=== PATIENT | male | born 1945 | race Caucasian/White ===

== ENCOUNTER → 2017-03-09 | Outpatient (CLI) | payer MEDICARE, OTHER ==
[~2017-03-09] MED LIST: AMBI12.5 PO; AMLO5TAB96 PO; ASPI-147 PO; B COTAB3 PO; BOSW5TAB PO; BUPR150CR PO; BUPR150T12 PO; CARV20 PO; CARV40 PO; CENTCHW3 PO; CENTTAB9 PO; CEPH500C3 PO; CHOL1CAP2 PO; CLOP75 PO; CLOP75TA PO; COLA100C PO; COQ1400C PO; ECOT81TA2 PO; FENO50TA PO; FIBER CAPSULES; FINA5TAB2 PO; FISH1000 PO; FORT10GE TD; FOSI10TA PO; FOSI10TA4 PO; FURO20TA PO; GABA600T PO; GLUCTAB PO; HYDR-3288 PO; HYDR-3580 PO; IMDU60TA PO; ISOS60TA PO; LACTCAP8 PO; LANO0.2510 PO; LASI20TA PO; LECI12002 PO; LEVEMIR SQ; METF1000 PO; METF500T PO; NEUR600T PO; NITR12SP SL; NITRSPR6 SL; NUCY200T PO; OMEGCAP PO; OMEP20TA PO; OSTEO BI-FLEX; OXYC1SOL5 PO; PANT20 PO; PLAV75TA29 PO; POTA-163 PO; POTA20IN3 PO; PSYL0.525 PO; SAW450CA2 PO; SAWPOW PO; SIMV20TA PO; SIMV40TA PO; STOO100C PO; TAMS0.4C4 PO; TAMS0.4C67 PO; VITA1000 PO; VITA500T83 PO; VITACAP7 PO; WELL200T PO; ZOLP10TA3 PO; [UNRECOGNIZED DRUG - CODE] TD
== END ==
LOC: CPRE 08:56
PROVIDERS: ATTEND Orthopaedic Surgery Sports Medicine
DX: Z01.812 Encounter for preprocedural laboratory examination (principal); Z01.818 Encounter for other preprocedural examination; Z01.810 Encounter for preprocedural cardiovascular examination; Z79.01 Long term (current) use of anticoagulants; Z96.60 Presence of unspecified orthopedic joint implant; M17.11 Unilateral primary osteoarthritis, right knee; M25.50 Pain in unspecified joint

== ENCOUNTER → 2017-03-15 | Outpatient (CLI) | payer MEDICARE, OTHER ==
[2017-03-15 10:16] LABS: AUTOMATED NEUTROPHIL # 2.6 TH/MM3 (1.8-7.7); BASOPHIL % 0.3 % (0.0-2.0); EOSINOPHIL # 0.1 TH/MM3 (0-0.4); HEMATOCRIT 39.4 % (39.0-51.0); HEMO FLAGS DIFF FINAL; LYMPH % 42.7 % (9.0-44.0); LYMPHOCYTE # 2.3 TH/MM3 (1.0-4.8); MEAN CELL VOLUME 89.1 FL (80.0-100.0); MEAN CORPUSCULAR HEMOGLOBIN 30.9 PG (27.0-34.0); MEAN CORPUSCULAR HGB CONC 34.7 % (32.0-36.0); MONO % 7.1 % (0.0-8.0); NEUT % 47.9 % (16.0-70.0); PLATELET COUNT 165 TH/MM3 (150-450); RED BLOOD COUNT 4.43 MIL/MM3 (4.50-5.90); RED CELL DISTRIBUTION WIDTH 14.3 % (11.6-17.2); WHITE BLOOD COUNT 5.4 TH/MM3 (4.0-11.0)
[2017-03-15 10:22] LABS: BLOOD, URINE NEG (NEG); GLUCOSE,URINE 70 mg/dL (NEG); KETONE, URINE NEG (NEG); NITRITE,URINE NEG (NEG); PH, URINE 5.5 (5.0-8.5); URINE COLOR YELLOW (YELLW/STRAW)
[2017-03-15 10:31] LABS: APTT (PATIENT) 25.8 SEC (24.3-30.1); PROTHROMBIN TIME - PATIENT 11.2 SEC (9.8-11.6)
[2017-03-15 10:34] LABS: COMMENT (UR) CULT NOT INDICATED; CULTURE IF INDICATED CULT NOT INDICATED
[2017-03-15 10:37] LABS: WESTERGREN SEDIMENTATION RATE 5 mm/hr (0-20)
[2017-03-15 10:38] LABS: ALT (GPT) 54 U/L (12-78); ANION GAP 7 MEQ/L (5-15); AST (GOT) 30 U/L (15-37); BICARBONATE 30.3 MEQ/L (21.0-32.0); BLOOD UREA NITROGEN 26 MG/DL (7-18); CHLORIDE 102 MEQ/L (98-107); GLOMERULAR FILTRATION RATE 75 ML/MIN (>89); GLUCOSE,FASTING 224 MG/DL (74-99); SODIUM (NA) 139 MEQ/L (136-145)
[2017-03-15 10:41] LABS: ALKALINE PHOSPHATASE 48 U/L (45-117); TOTAL BILIRUBIN ADULT 0.7 MG/DL (0.2-1.0)
--- NOTE | 2017-03-15 11:59 | RADRPT ---
EXAM DATE/TIME: 03/15/2017 09:26 [facility] COMPARISON: No previous studies available for comparison. INDICATIONS : Evaluate for pneumoina, pneu,othorax and communicable disease pre op for total knee surgery. MEDICAL HISTORY : None. SURGICAL HISTORY : None. ENCOUNTER: Initial ACUITY: 1 day PAIN SCORE: 0/10 LOCATION: Bilateral chest FINDINGS: PA and lateral views of the chest demonstrate the lungs to be symmetrically aerated without evidence of mass, infiltrate or effusion. The cardiomediastinal contours are unremarkable. Osseous structure s are intact. CONCLUSION: No acute disease. Bernardo Heredia MD on March 15, 2017 at 11:57 Board Certified Radiologist. This report was verified electronically.
== END ==
LOC: CPRE 08:47
PROVIDERS: ATTEND Orthopaedic Surgery Sports Medicine
DX: Z01.811 Encounter for preprocedural respiratory examination (principal); Z01.812 Encounter for preprocedural laboratory examination; Z01.818 Encounter for other preprocedural examination; Z01.810 Encounter for preprocedural cardiovascular examination; Z96.60 Presence of unspecified orthopedic joint implant; Z79.01 Long term (current) use of anticoagulants; M25.50 Pain in unspecified joint; M17.11 Unilateral primary osteoarthritis, right knee
CPT/HCPCS: 36415; 71020; 80053; 81001; 85025; 85610; 85652; 85730

== ENCOUNTER 2017-03-26 06:28 | Inpatient (IN) | payer MEDICARE, OTHER ==
[~2017-03-26] VITALS: Ht 177.8 cm; Wt 99.7 kg
[~2017-03-26 06:28] MED LIST changes: -AMBI12.5 PO; -AMLO5TAB96 PO; -B COTAB3 PO; -BUPR150CR PO; -CARV40 PO; -CENTTAB9 PO; -CEPH500C3 PO; -CHOL1CAP2 PO; -CLOP75 PO; -ECOT81TA2 PO; -FISH1000 PO; -FORT10GE TD; -FOSI10TA4 PO; -GLUCTAB PO; -HYDR-3288 PO; -IMDU60TA PO; -LANO0.2510 PO; -LASI20TA PO; -METF1000 PO; -NEUR600T PO; -NITR12SP SL; -OXYC1SOL5 PO; -PANT20 PO; -PLAV75TA29 PO; -POTA20IN3 PO; -SIMV20TA PO; -STOO100C PO; -TAMS0.4C67 PO; -WELL200T PO; -[UNRECOGNIZED DRUG - CODE] TD
[2017-03-26] MEDS ORDERED: SODIUM CHLORID 0.9% 500 ML IV PRN (07:00)
[2017-03-26] MEDS ORDERED: CHLORHEXIDINE GLUCONATE 4% SOLN 120 ML BTL TOPICAL SCH (07:00)
[2017-03-26] MEDS ORDERED: DEXAMETHASONE SOD PHOS 20 MG/5 ML VIAL IV PRN (07:00)
[2017-03-26] MEDS ORDERED: ceFAZolin 2 GM PREMIX 50 ML IV SCH (07:00)
[2017-03-26] MEDS ORDERED: INSULIN HUMAN REGULAR 1,000 UNITS/10 ML VIAL SQ PRN (07:00)
[2017-03-26] MEDS ORDERED: POVIDONE IODINE 5% (ANTISEPSIS KIT) 4 APPLICATIONS EACH NARE PRN (07:00)
[2017-03-26] MEDS ORDERED: TRANEXAMIC PERI-ARTICULAR 3,000 MG/NS 100 ML P-ARTICULR SCH ×2 (07:00)
[2017-03-26] MEDS ORDERED: SODIUM CHLORIDE 0.9% IV SCH (07:00)
[2017-03-26] MEDS ORDERED: POVIDONE IODINE 7.5% SCRUB 118 ML BOTTLE TOPICAL SCH (07:00)
[2017-03-26] MEDS ORDERED: CHLORHEXIDINE GLUCONATE 2 % 1 PACK (2 CLOTHS) TOPICAL PRN (07:00)
[2017-03-26] MEDS ORDERED: ROPIVACAINE PERI-ARTICULAR INJECTION. P-ARTICULR SCH ×5 (07:00)
[2017-03-26] MEDS ORDERED: TRANEXAMIC ACID IV SCH (07:00)
[2017-03-26] MEDS ORDERED: METOPROLOL TARTRATE 25 MG TAB PO PRN (07:00)
[2017-03-26] MEDS: LACTATED RINGER'S 1000 ML IV PRN ×2 (07:30→22:22)
[2017-03-26] MEDS ORDERED: METF500T PO (07:34)
[2017-03-26] MEDS ORDERED: METF1000 PO (07:34)
[2017-03-26] MEDS ORDERED: PLAV75TA29 PO ×2 (07:34→09:16)
[2017-03-26] MEDS ORDERED: BUPR150CR PO (07:34)
[2017-03-26] MEDS: VANCOMYCIN 1000 MG/NS 250 ML (for <70 kg) IV SCH ×4 (08:38→08:40)
[2017-03-26] MEDS ORDERED: Post-op Orders (for Pharmacy) MISC XX ONE (09:15)
[2017-03-26] MEDS ORDERED: ONDANSETRON HCL 4 MG/2 ML VIAL IVP PRN (09:15)
[2017-03-26] MEDS ORDERED: HYDR-3288 PO (09:15)
[2017-03-26] MEDS ORDERED: SODIUM CHLORIDE 0.9% FLUSH 5 ML FLUSH IVF PRN (09:15)
[2017-03-26] MEDS ORDERED: ACETAMINOPHEN/HYDROcodone 325 MG/7.5 MG TAB PO PRN (09:15)
[2017-03-26] MEDS ORDERED: diphenhydrAMINE HCL 50 MG/ML VIAL IV PRN (09:15)
[2017-03-26] MEDS ORDERED: BISACODYL 10 MG SUPP RECTAL PRN (09:15)
[2017-03-26] MEDS ORDERED: MORPHINE SULFATE 4 MG/ML INJ IV PUSH PRN (09:15)
[2017-03-26] MEDS ORDERED: GENTAMICIN SULFATE 80 MG/2 ML VIAL ONE (09:53)
[2017-03-26] MEDS ORDERED: FAMOTIDINE 20 MG/2 ML VIAL ONE (10:10)
[2017-03-26] MEDS ORDERED: MIDAZOLAM HCL 2 MG/2 ML VIAL ONE (10:10)
[2017-03-26] MEDS ORDERED: PROPOFOL 200 MG/20 ML AMP IV ONE (12:00)
[2017-03-26] MEDS ORDERED: LACTATED RINGER'S 1000 ML INJ 1,000 ML IV ONE (12:00)
[2017-03-26] MEDS ORDERED: ROCURONIUM INJ 50 MG/5 ML SYRINGE IV PUSH ONE (12:00)
[2017-03-26] MEDS ORDERED: LIDOCAINE HCL 1% PF 5 ML AMPULE OTHER ONE (12:00)
[2017-03-26] MEDS ORDERED: BUPIVACAINE LIPOSOME PF 1.3% 20 ML VIAL ONE (12:01)
[2017-03-26] MEDS ORDERED: DO NOT ADM ANY ANTICOAGULANT DRUGS PRN (12:20)
[2017-03-26] MEDS: SODIUM CHLOR 0.9% 1000 ML INJ 1,000 ML IV SCH ×2 (12:35→19:13)
--- NOTE | 2017-03-26 13:01 | RADRPT ---
EXAM DATE/TIME: 03/26/2017 12:46 [facility] COMPARISON: No previous studies available for comparison. INDICATIONS : Post op right total knee. MEDICAL HISTORY : Unobtainable. SURGICAL HISTORY : Unobtainable. ENCOUNTER: Initial ACUITY: 1 day PAIN SCORE: Non-responsive. LOCATION: Right knee FINDINGS: AP and lateral views of the knee following arthroplasty reveals a prosthesis in anatomic alignment. F racture is not appreciated. Surgical drain is evident CONCLUSION: Status post total knee arthroplasty. Ted Peguero MD FACR Board Certified Radiologist. This report was verified electronically.
[2017-03-26] MEDS ORDERED: GLUCAGON 1 MG/ML VIAL OTHER PRN (14:00)
[2017-03-26] MEDS ORDERED: DEXTROSE 50% IN WATER 50 ML VIAL(D50) IV PRN (14:00)
--- NOTE | 2017-03-26 14:14 | PD.CONS ---
[facility] By Reason for Consult medical management Primary Care Physician Wilson Renae M.D. Diagnoses: History of Present Illness patient is a 71 y/o male with history of CAD,dyslipidemia, diabetes, osteoarthritis who underwent right total knee arthroplasty today. at the time of my evaluation he was in no acute distress, complaining of some pain to the right knee. otherwise denies chest pain, sob, nausea, vomiting. medicine was consulted for post-op medical management. Review of Systems Constitutional: DENIES: Fever, Weight loss, Chills, Night Sweats Eyes: DENIES: Blurred vision, Diplopia, Vision loss, Double Vision Ears, nose, mouth, throat: DENIES: Tinnitus, Vertigo, Throat pain, Epistaxis Respiratory: DENIES: Apneas, Cough, Snoring, Wheezing, Hemoptysis, Sputum production, Shortness of breath Cardiovascular: DENIES: Chest pain, Palpitations, Syncope, Dyspnea on Exertion , PND, Lower Extremity Edema, Orthopnea, Claudication Gastrointestinal: DENIES: Abdominal pain, Black stools, Bloody stools, Constipation, Diarrhea, Nausea, Vomiting, Difficulty Swallowing, Anorexia Genitourinary: DENIES: Urinary frequency, Urgency, Hematuria, Dysuria Musculoskeletal: COMPLAINS OF: Joint pain (right knee), DENIES: Muscle aches, Stiffness, Joint Swelling Integumentary: DENIES: Rash Neurologic: DENIES: Abnormal gait, Headache, Localized weakness, Paresthesias, Seizures, Speech Problems, Tremor, Poor Balance Psychiatric: DENIES: Anxiety, Confusion, Mood changes, Depression, Hallucinations, Agitation, Suicidal Ideation, Homicidal Ideation, Delusions Past Family Social History Allergies: Coded Allergies: Influenza Virus Vaccines (Unverified Allergy, Severe, 03/26/17) adhesive (Unverified Allergy, Unknown, 03/26/17) Past Medical History CAD dyslipidemia diabetes osteoarthritis Past Surgical History hernia repair Reported Medications levemir 'metformin aspirin plavix fosinopril simvastatin lasix potassium imdur coreg Active Ordered Medications Current Medications Dexamethasone Sodium Phosphate (Decadron Inj) 10 mg WEIGHMASTER PRN IV GIVE IN OR HOLDING Last administered on 03/26/17t 07:35; Start 03/26/17 at 07:00; Stop at 06:59 Povidone Iodine (Betadine 7.5% Scrub) 1 applic ONCE TOPICAL Last administered on 03/26/17 07:57; Start 03/26/17 at 07:00; Stop 03/29/17 at 06:59 Chlorhexidine Gluconate (Hibiclens 4% Top Soln) 1 applic ONCE TOPICAL ; Start at 07:00; Stop 03/29/17 at 06:59 Cefazolin Sodium/ Dextrose 50 ml @ 100 mls/hr WEIGHMASTER IV Last administered on 03/26/17 08:38; Start 03/26/17 at 07:00; Stop 03/29/17 at 06:59 Vancomycin HCl 1000 mg/Sodium Chloride 250 ml @ 250 mls/hr WEIGHMASTER IV Last administered on 03/26/17 08:40; Start 03/26/17 at 07:00; Stop 03/29/17 at 06:59 Tranexamic Acid 1415 mg/Sodium Chloride 114.15 ml @ 200 mls/ hr ONCE IV Last administered on 03/26/17 10:50; Start 03/26/17 at 07:00; Stop 03/26/17 at 17:00 Ropivacaine 24.63 ml/Ketorolac Tromethamine 30 mg/Epinephrine HCl 0.5 mg/ Clonidine 80 mcg/ Sodium Chloride 100 ml @ 200 mls/hr ONCE P-ARTICULR Last administered on 03/26/17 11:55; Start 03/26/17 at 07:00; Stop 03/26/17 at 17:00 Tranexamic Acid 3000 mg/Sodium Chloride 130 ml @ 260 mls/hr ONCE P-ARTICULR Last administered on 03/26/17 12:00; Start 03/26/17 at 07:00; Stop 03/26/17 at 17:00 Lactated Ringer's 1,000 ml @ 30 mls/hr Q24H PRN IV SEE LABEL COMMENTS Last administered on 03/26/17 07:30; Start 03/26/17 at 07:00; Stop 03/29/17 at 06:59 Sodium Chloride 500 ml @ 30 mls/hr [id number] PRN IV SEE LABEL COMMENTS; Start at 07:00; Stop 03/29/17 at 06:59 Metoprolol Tartrate (Lopressor) 25 mg WEIGHMASTER PRN PO SEE LABEL COMMENTS; Start 03/26/17 at 07:00; Stop 03/29/17 at 06:59 Povidone Iodine (Betadine 5% Antisepsis Kit) 1 applic WEIGHMASTER PRN EACH NARE SEE LABEL COMMENTS Last administered on 03/26/17 06:50; Start 03/26/17 at 07:00 ; Stop 03/29/17 at 06:59 Chlorhexidine Gluconate (Chlorhexidine 2% Cloth) 3 pack WEIGHMASTER PRN TOPICAL SEE LABEL COMMENTS Last administered on 03/26/17 06:45; Start 03/26/17 at 07:00 ; Stop 03/29/17 at 06:59 Insulin Human Regular (NovoLIN R INJ) See Protocol Table ... WEIGHMASTER PRN SQ SEE PROTOCOL TABLE; Start 03/26/17 at 07:00; Stop 03/29/17 at 06:59 Bupropion HCl (Wellbutrin Sr) 150 mg Q12HR PO ; Start 03/26/17 at 21:00 Fenofibrate (Tricor) 145 mg DAILY PO ; Start 03/27/17 at 09:00 Finasteride (Proscar) 5 mg DAILY PO ; Start 03/27/17 at 09:00 Lisinopril (Prinivil) 10 mg DAILY PO ; Start 03/27/17 at 09:00 Furosemide (Lasix) 20 mg DAILY PO ; Start 03/27/17 at 09:00 Gabapentin (Neurontin) 600 mg BID PO ; Start 03/26/17 at 21:00 Insulin Detemir (Levemir Inj) 38 units HS SQ ; Start 03/26/17 at 21:00 Isosorbide Mononitrate (Imdur) 60 mg DAILY PO ; Start 03/27/17 at 09:00 Metformin HCl (Glucophage) 1,000 mg HS PO ; Start 03/26/17 at 21:00 Metformin HCl (Glucophage) 500 mg BIDPC PO ; Start 03/26/17 at 18:00 Potassium Chloride (KCl) 20 meq DAILY PO ; Start 03/27/17 at 10:00 Tamsulosin HCl (Flomax) 0.8 mg DAILY@1600 PO ; Start 03/26/17 at 16:00 Zolpidem Tartrate (Ambien) 10 mg HS PRN PO INSOMNIA; Start 03/26/17 at 21:00 Carvedilol (Coreg) 6.25 mg BID PO ; Start 03/27/17 at 09:00 Pantoprazole Sodium (Protonix) 20 mg HS PO ; Start 03/26/17 at 21:00 Pravastatin Sodium (Pravachol) 80 mg HS PO ; Start 03/26/17 at 21:00 Sodium Chloride 1,000 ml @ 100 mls/hr Q10H IV Last administered on 03/26/17t 12:35; Start 03/26/17 at 09:13 IV Flush (NS Flush) 2 ml UNSCH PRN IVF FLUSH AFTER USING IV ACCESS; Start 03/26 at 09:15 IV Flush (NS Flush) 2 ml BID IVF ; Start 03/26/17 at 21:00 Cefazolin Sodium 1000 mg/Sodium Chloride 100 ml @ 200 mls/hr Q6H IV ; Start at 15:00; Stop 03/27/17 at 03:29 Miscellaneous Information (Post-op Orders (for Pharmacy)) STAT ONCE XX ; Start 03/26/17 at 09:15; Stop 03/26/17 at 09:20; Status DC Enoxaparin Sodium (Lovenox Inj) 40 mg Q24H SQ ; Start 03/26/17 at 09:15; Status UNV Morphine Sulfate (Morphine Inj) 3 mg Q3H PRN IV PUSH Pain >7 when off WIRER HELPER; Start 03/26/17 at 09:15 Acetaminophen/ Hydrocodone Bitart ([place] 7.5-325 Mg) 1 tab Q4H PRN PO PAIN LESS THAN 5 ON SCALE; Start 03/26/17 at 09:15 Acetaminophen/ Hydrocodone Bitart ([place] 7.5-325 Mg) 2 tab Q4H PRN PO PAIN SCALE 5 TO 10; Start 03/26/17 at 09:15 Multivitamins/ Minerals Therapeutic (Theragran M Tab) 1 tab BID PO ; Start 03/27 at 21:00; Stop 05/26/17 at 20:59 Ondansetron HCl (Zofran Inj) 4 mg Q6H PRN IVP NAUSEA OR VOMITING; Start at 09:15 Docusate Sodium (Colace) 100 mg BID PO ; Start 03/27/17 at 21:00 Bisacodyl (Dulcolax Supp) 10 mg DAILY PRN RECTAL CONSTIPATION; Start 03/26/17 at 09:15 Diphenhydramine HCl (Benadryl Inj) 25 mg Q6H PRN IV ITCHING; Start 03/26/17 at 09:15 Gentamicin Sulfate (Gentamicin Inj) 240 mg STK-MED ONCE .ROUTE Last administered on 03/26/17t 10:58; Start 03/26/17 at 09:53; Stop 03/26/17 at 09:54 ; Status DC Midazolam HCl (Versed Inj) 2 mg STK-MED ONCE .ROUTE ; Start 03/26/17 at 10:10; Stop 03/26/17 at 10:11; Status DC Famotidine (Pepcid Inj) 20 mg STK-MED ONCE .ROUTE ; Start 03/26/17 at 10:10; Stop 03/26/17 at 10:11; Status DC Miscellaneous Information ALL NURSING DEPARTME... UNSCH PRN .XX SEE LABEL COMMENTS; Start 03/26/17 at 12:20; Stop 03/27/17 at 12:19 Family History CHF in mother Social History quit smoking and drinking years ago. Physical Exam Vital Signs Vital Signs Date Time Temp Pulse Resp B/P (MAP) Pulse Ox O2 Delivery O2 Flow Rate FiO2 03/26/17 13:30 72 16 108/60 (76) 97 Nasal Cannula 2 03/26/17 13:15 73 16 104/56 (72) 97 Nasal Cannula 2 03/26/17 13:00 73 16 101/50 (67) 93 Nasal Cannula 2 03/26/17 12:45 72 16 99/55 (70) 94 Nasal Cannula 2 03/26/17 12:30 70 16 100/56 (71) 96 Nasal Cannula 2 03/26/17 12:23 97.8 72 16 99/54 (69) 95 Nasal Cannula 2 03/26/17 07:56 99.2 68 20 96/65 (75) 94 Physical Exam GENERAL: This is a well-nourished, well-developed patient, in no apparent distress. SKIN: No rashes, ecchymoses or lesions. Cool and dry. HEAD: Atraumatic. Normocephalic. No temporal or scalp tenderness. EYES: Pupils equal round and reactive. Extraocular motions intact. No scleral icterus. No injection or drainage. ENT: Nose without bleeding, purulent drainage or septal hematoma. Throat without erythema, tonsillar hypertrophy or exudate. Uvula midline. Airway patent. NECK: Trachea midline. No JVD or lymphadenopathy. Supple, nontender, no meningeal signs. CARDIOVASCULAR: Regular rate and rhythm without murmurs, gallops, or rubs. RESPIRATORY: Clear to auscultation. Breath sounds equal bilaterally. No wheezes , rales, or rhonchi. GASTROINTESTINAL: Abdomen soft, non-tender, nondistended. No hepato-splenomegaly , or palpable masses. No guarding. MUSCULOSKELETAL:right knee covered with clean dressing. NEUROLOGICAL: Awake and alert. Cranial nerves II through XII intact. Motor and sensory grossly within normal limits. Five out of 5 muscle strength in all muscle groups. Normal speech. Imaging Last Impressions Knee X-Ray 03/26/17 0913 Signed Impressions: Service Date/Time: Sunday, March 26, 2017 12:46 - CONCLUSION: Status post total knee arthroplasty. Ted Peguero MD Assessment and Plan Assessment and Plan A/P - s/o right TKA- management per ortho -CAD-s/p stent placement; resumed ABIMBOLA-I, coreg and imdur- resume antiplatelets when ok with ortho -dyslipidemia; resumed statin -diabetes mellitus; resumed levemir- accu-check with SSI -DVT prophylaxis with Lovenox- per ortho thank you for the consult. Discussed Condition With the patient. Yumi Anaya MD Mar 26, 2017 14:14
[2017-03-26] MEDS: TAMSULOSIN HCL 0.4 MG CAP PO SCH (15:44)
[2017-03-26] MEDS: ACETAMINOPHEN/HYDROcodone 325 MG/7.5 MG TAB PO PRN ×2 (16:26→20:30)
[2017-03-26] MEDS: INSULIN ASPART SUPPLEMENTAL SCALE SQ SCH ×2 (16:27→20:43)
[2017-03-26] MEDS: metFORMIN HCL 500 MG TAB PO SCH ×2 (17:26→20:30)
[2017-03-26] MEDS: buPROPion HCL 150 MG SUSTAINED RELEASE TAB PO SCH (20:32)
[2017-03-26] MEDS: PANTOPRAZOLE SOD 20 MG DELAYED RELEASE TAB PO SCH (20:32)
[2017-03-26] MEDS: PRAVASTATIN SOD 80 MG TAB PO SCH (20:32)
[2017-03-26] MEDS: GABAPENTIN 300 MG CAP PO SCH (20:32)
[2017-03-26] MEDS: SODIUM CHLORIDE 0.9% FLUSH 5 ML FLUSH IVF SCH (20:34)
[2017-03-26] MEDS: INSULIN DETEMIR 100 UNITS/ML VIAL SQ SCH (20:43)
[2017-03-26 20:53] VITALS: BP 105/52; PULSE 90; RESP 18; TEMP 96.8; O2SAT 95
[2017-03-26] MEDS ORDERED: ZOLPIDEM TARTRATE 10 MG TAB PO PRN (21:00)
[2017-03-27] VITALS (7 sets, daily range): BP systolic 103–140; BP diastolic 50–71; PULSE 71–92; RESP 17–18; TEMP 96.3–100.3; O2SAT 92–96
[2017-03-27] MEDS: SODIUM CHLOR 0.9% 1000 ML INJ 1,000 ML IV SCH ×2 (04:10→15:13)
[2017-03-27] MEDS: ACETAMINOPHEN/HYDROcodone 325 MG/7.5 MG TAB PO PRN ×4 (05:34→21:33)
[2017-03-27] MEDS: INSULIN ASPART SUPPLEMENTAL SCALE SQ SCH ×4 (08:00→20:14)
[2017-03-27] MEDS: FINASTERIDE 5 MG TAB PO SCH (08:14)
[2017-03-27] MEDS: metFORMIN HCL 500 MG TAB PO SCH ×3 (08:14→20:15)
[2017-03-27] MEDS: GABAPENTIN 300 MG CAP PO SCH ×2 (08:14→20:16)
[2017-03-27] MEDS: FUROSEMIDE 20 MG TAB PO SCH (08:14)
[2017-03-27] MEDS: ISOSORBIDE MONONITRATE 60 MG TAB PO SCH (08:15)
[2017-03-27] MEDS: FENOFIBRATE 145 MG TAB PO SCH (08:15)
[2017-03-27] MEDS: buPROPion HCL 150 MG SUSTAINED RELEASE TAB PO SCH ×2 (08:15→20:16)
[2017-03-27] MEDS: SODIUM CHLORIDE 0.9% FLUSH 5 ML FLUSH IVF SCH ×2 (08:18→20:16)
[2017-03-27 08:24] LABS: HEMATOCRIT 33.4 % (39.0-51.0); MEAN CELL VOLUME 87.7 FL (80.0-100.0); MEAN CORPUSCULAR HEMOGLOBIN 30.6 PG (27.0-34.0); MEAN CORPUSCULAR HGB CONC 34.9 % (32.0-36.0); PLATELET COUNT 135 TH/MM3 (150-450); RED BLOOD COUNT 3.81 MIL/MM3 (4.50-5.90); RED CELL DISTRIBUTION WIDTH 14.4 % (11.6-17.2); REVIEW FLAG FINAL; WHITE BLOOD COUNT 8.6 TH/MM3 (4.0-11.0)
[2017-03-27] MEDS ORDERED: CARVEDILOL 6.25 MG TAB PO SCH (09:00)
[2017-03-27] MEDS ORDERED: LISINOPRIL 10 MG TAB PO SCH (09:00)
[2017-03-27 09:01] LABS: BICARBONATE 28.4 MEQ/L (21.0-32.0); POTASSIUM 3.7 MEQ/L (3.5-5.1)
--- NOTE | 2017-03-27 09:07 | PD.ORT.PN ---
Subjective Post Op Day #: 1 Subjective Remarks pain tolerable Objective Vitals Vital Signs Date Time Temp Pulse Resp B/P (MAP) Pulse Ox O2 Delivery O2 Flow Rate FiO2 03/27/17 09:04 96 21 03/27/17 08:07 97.5 77 18 115/67 (83) 96 03/27/17 04:10 98.7 86 18 114/60 (78) 95 03/27/17 00:26 98.2 92 18 103/58 (73) 95 03/26/17 20:53 96.8 90 18 105/52 (69) 95 03/26/17 20:48 21 03/26/17 17:26 16 03/26/17 17:00 70 16 105/59 (74) 97 Room Air 03/26/17 16:00 73 16 112/57 (75) 99 Room Air 03/26/17 15:00 72 16 119/57 (77) 99 Room Air 03/26/17 14:53 16 03/26/17 14:00 68 16 109/55 (73) 97 Room Air 03/26/17 13:30 72 16 108/60 (76) 97 Nasal Cannula 2 03/26/17 13:15 73 16 104/56 (72) 97 Nasal Cannula 2 03/26/17 13:00 73 16 101/50 (67) 93 Nasal Cannula 2 03/26/17 12:45 72 16 99/55 (70) 94 Nasal Cannula 2 03/26/17 12:30 70 16 100/56 (71) 96 Nasal Cannula 2 03/26/17 12:23 97.8 72 16 99/54 (69) 95 Nasal Cannula 2 I/O 03/26/17 03/26/17 03/26/17 03/27/17 03/27/17 03/27/17 07:00 15:00 23:00 07:00 15:00 23:00 Intake Total 1250 ml 1904 ml 580 ml Output Total 750 ml 2000 ml 1950 ml Balance 500 ml -96 ml -1370 ml Intake Oral 920 ml 480 ml IV Total 250 ml 984 ml 100 ml Other 1000 ml Output Urine Total 700 ml 2000 ml 1950 ml Estimated Blood Loss 50 ml # Bowel Movements 0 0 Result Diagram: 03/27/1773403/27/17734 Imaging Last 24 hours Impressions Knee X-Ray 03/26/17912 Signed Impressions: Service Date/Time: Sunday, March 26, 2017 12:46 - CONCLUSION: Status post total knee arthroplasty. Ted Peguero MD Objective Remarks in bed, nad dressing c/d/i neg aden nvi Assessment & Plan Ortho Post Op Day #: 1 Problem List: Assessment and Plan s/p R TKA wbat daily dressing changes lovenox d/c planning home with [facility] and pt - plan for Wed rx in chart f/up dr. alcantara 2 weeks Tay Pandey Mar 27, 2017 09:07
--- NOTE | 2017-03-27 09:10 | HHI.DCPOC ---
Discharge Care Plan Diagnosis: (1) Primary localized osteoarthrosis, lower leg Your Health Problems Are: Difficulty with ADL Goals to Promote Your Health * To prevent worsening of your condition and complications * To maintain your health at the optimal level Directions to Meet Your Goals Take your medications as prescribed Follow your dietary instruction Follow activity as directed Keep your appointments as scheduled Take your immunizations and boosters as scheduled If your symptoms worsen call your PCP, if no PCP go to Urgent Care Center or Emergency Room Smoking is Dangerous to Your Health. Avoid second hand smoke Call the 24-hour hour crisis hotline for domestic abuse at Tay Pandey Mar 27, 2017 09:10
--- NOTE | 2017-03-27 09:11 | HHI.FF ---
Face to Face Verification Diagnosis: (1) Primary localized osteoarthrosis, lower leg Physical Therapy Gait training, Safety evaluation, Transfer training, bed to chair Knee: Total knee, Protocol: Right Right LE Weight Bearing: WB as tolerated Nursing RN: 3 days/week x 2 weeks Nursing: Dressing changes Dressing Changes: Daily dressing change I have seen patient Reinaldo Robledo on 03/27/17. My clinical findings support the need for the requested home health care services because: Limited ability to care for self High risk of falls I certify that my clinical findings support that this patient is homebound because: Post-op weakness Unsteady gait/balance Tay Pandey Mar 27, 2017 09:11
[2017-03-27] MEDS: POTASSIUM CHLORIDE 20 MEQ CONTROLLED RELEASE TAB PO SCH (09:40)
[2017-03-27] MEDS: ENOXAPARIN SODIUM 40 MG/0.4 ML SYRINGE SQ SCH (11:36)
--- NOTE | 2017-03-27 13:38 | HHI.PR ---
Subjective Remarks in no acute distress. but he says that he felt dizzy earlier. BP trend noted. d/w the RN. Objective Vitals Vital Signs Date Time Temp Pulse Resp B/P (MAP) Pulse Ox O2 Delivery O2 Flow Rate FiO2 03/27/17 12:00 96.3 71 18 105/50 (68) 92 03/27/17 10:40 18 03/27/17 09:04 96 21 03/27/17 08:07 97.5 77 18 115/67 (83) 96 03/27/17 04:10 98.7 86 18 114/60 (78) 95 03/27/17 00:26 98.2 92 18 103/58 (73) 95 03/26/17 20:53 96.8 90 18 105/52 (69) 95 03/26/17 20:48 21 03/26/17 17:00 70 16 105/59 (74) 97 Room Air 03/26/17 16:00 73 16 112/57 (75) 99 Room Air 03/26/17 15:00 72 16 119/57 (77) 99 Room Air 03/26/17 14:53 16 03/26/17 14:00 68 16 109/55 (73) 97 Room Air I/O 03/26/17 03/26/17 03/26/17 03/27/17 03/27/17 03/27/17 07:00 15:00 23:00 07:00 15:00 23:00 Intake Total 1250 ml 1904 ml 580 ml Output Total 750 ml 2000 ml 1950 ml Balance 500 ml -96 ml -1370 ml Intake Oral 920 ml 480 ml IV Total 250 ml 984 ml 100 ml Other 1000 ml Output Urine Total 700 ml 2000 ml 1950 ml Estimated Blood Loss 50 ml # Bowel Movements 0 0 Result Diagram: 03/27/17 0735 03/27/1735 Imaging Last Impressions Knee X-Ray 03/26/17912 Signed Impressions: Service Date/Time: Sunday, March 26, 2017 12:46 - CONCLUSION: Status post total knee arthroplasty. Ted Peguero MD Objective Remarks GENERAL: This is a well-nourished, well-developed patient, in no apparent distress. CARDIOVASCULAR: Regular rate and regular rhythm without murmurs, gallops, or rubs. RESPIRATORY: Clear to auscultation. Breath sounds equal bilaterally. No wheezes , rales, or rhonchi. GASTROINTESTINAL: Abdomen soft, non-tender, nondistended. Normal, active bowel sounds MUSCULOSKELETAL: right knee covered with clean dressing. NEURO: Alert & Oriented x4 to person, place, time, situation. Moves all ext x4 Medications and IVs Current Medications Dexamethasone Sodium Phosphate (Decadron Inj) 10 mg ACCOUNTANT ASSISTANT PRN IV GIVE IN OR HOLDING Last administered on 03/26/17 07:35; Start 03/26/17 at 07:00; Stop at 06:59 Povidone Iodine (Betadine 7.5% Scrub) 1 applic ONCE TOPICAL Last administered on 03/26/17 07:57; Start 03/26/17 at 07:00; Stop 03/29/17 at 06:59 Chlorhexidine Gluconate (Hibiclens 4% Top Soln) 1 applic ONCE TOPICAL ; Start at 07:00; Stop 03/29/17 at 06:59 Cefazolin Sodium/ Dextrose 50 ml @ 100 mls/hr ACCOUNTANT ASSISTANT IV Last administered on 03/26/17 08:38; Start 03/26/17 at 07:00; Stop 03/29/17 at 06:59 Vancomycin HCl 1000 mg/Sodium Chloride 250 ml @ 250 mls/hr ACCOUNTANT ASSISTANT IV Last administered on 03/26/17 08:40; Start 03/26/17 at 07:00; Stop 03/29/17 at 06:59 Tranexamic Acid 1415 mg/Sodium Chloride 114.15 ml @ 200 mls/ hr ONCE IV Last administered on 03/26/17 10:50; Start 03/26/17 at 07:00; Stop 03/26/17 at 17:00 ; Status DC Ropivacaine 24.63 ml/Ketorolac Tromethamine 30 mg/Epinephrine HCl 0.5 mg/ Clonidine 80 mcg/ Sodium Chloride 100 ml @ 200 mls/hr ONCE P-ARTICULR Last administered on 03/26/17 11:55; Start 03/26/17 at 07:00; Stop 03/26/17 at 17:00 ; Status DC Tranexamic Acid 3000 mg/Sodium Chloride 130 ml @ 260 mls/hr ONCE P-ARTICULR Last administered on 03/26/17 12:00; Start 03/26/17 at 07:00; Stop 03/26/17 at 17:00; Status DC Lactated Ringer's 1,000 ml @ 30 mls/hr Q24H PRN IV SEE LABEL COMMENTS Last administered on 03/26/17 07:30; Start 03/26/17 at 07:00; Stop 03/29/17 at 06:59 Sodium Chloride 500 ml @ 30 mls/hr [id number] PRN IV SEE LABEL COMMENTS; Start at 07:00; Stop 03/29/17 at 06:59 Metoprolol Tartrate (Lopressor) 25 mg ACCOUNTANT ASSISTANT PRN PO SEE LABEL COMMENTS; Start 03/26/17 at 07:00; Stop 03/29/17 at 06:59 Povidone Iodine (Betadine 5% Antisepsis Kit) 1 applic ACCOUNTANT ASSISTANT PRN EACH NARE SEE LABEL COMMENTS Last administered on 03/26/17 06:50; Start 03/26/17 at 07:00 ; Stop 03/29/17 at 06:59 Chlorhexidine Gluconate (Chlorhexidine 2% Cloth) 3 pack ACCOUNTANT ASSISTANT PRN TOPICAL SEE LABEL COMMENTS Last administered on 03/26/17 06:45; Start 03/26/17 at 07:00 ; Stop 03/29/17 at 06:59 Insulin Human Regular (NovoLIN R INJ) See Protocol Table ... ACCOUNTANT ASSISTANT PRN SQ SEE PROTOCOL TABLE; Start 03/26/17 at 07:00; Stop 03/29/17 at 06:59 Bupropion HCl (Wellbutrin Sr) 150 mg Q12HR PO Last administered on 03/27/17 08 :15; Start 03/26/17 at 21:00 Fenofibrate (Tricor) 145 mg DAILY PO Last administered on 03/27/17 08:15; Start 03/27/17 at 09:00 Finasteride (Proscar) 5 mg DAILY PO Last administered on 03/27/17 08:14; Start 03/27/17 at 09:00 Lisinopril (Prinivil) 10 mg DAILY PO Last administered on 03/27/17 08:15; Start 03/27/17 at 09:00 Furosemide (Lasix) 20 mg DAILY PO Last administered on 03/27/17 08:14; Start 03/27/17 at 09:00 Gabapentin (Neurontin) 600 mg BID PO Last administered on 03/27/17 08:14; Start 03/26/17 at 21:00 Insulin Detemir (Levemir Inj) 38 units HS SQ Last administered on 03/26/17 20: 43; Start 03/26/17 at 21:00 Isosorbide Mononitrate (Imdur) 60 mg DAILY PO Last administered on 03/27/17 08 :15; Start 03/27/17 at 09:00 Metformin HCl (Glucophage) 1,000 mg HS PO Last administered on 03/26/17 20:30 ; Start 03/26/17 at 21:00 Metformin HCl (Glucophage) 500 mg BIDPC PO Last administered on 03/27/17 08:14 ; Start 03/26/17 at 18:00 Potassium Chloride (KCl) 20 meq DAILY PO Last administered on 03/27/17 09:40; Start 03/27/17 at 10:00 Tamsulosin HCl (Flomax) 0.8 mg DAILY@1600 PO Last administered on 03/26/17 15: 44; Start 03/26/17 at 16:00 Zolpidem Tartrate (Ambien) 10 mg HS PRN PO INSOMNIA; Start 03/26/17 at 21:00 Carvedilol (Coreg) 6.25 mg BID PO Last administered on 03/27/17 08:14; Start 03/27/17 at 09:00 Pantoprazole Sodium (Protonix) 20 mg HS PO Last administered on 03/26/17 20:32 ; Start 03/26/17 at 21:00 Pravastatin Sodium (Pravachol) 80 mg HS PO Last administered on 03/26/17 20:32 ; Start 03/26/17 at 21:00 Sodium Chloride 1,000 ml @ 100 mls/hr Q10H IV Last administered on 03/26/17 12:35; Start 03/26/17 at 09:13 IV Flush (NS Flush) 2 ml UNSCH PRN IVF FLUSH AFTER USING IV ACCESS; Start 03/26 at 09:15 IV Flush (NS Flush) 2 ml BID IVF ; Start 03/26/17 at 21:00 Cefazolin Sodium 1000 mg/Sodium Chloride 100 ml @ 200 mls/hr Q6H IV Last administered on 03/27/17 03:05; Start 03/26/17 at 15:00; Stop 03/27/17 at 03:29 ; Status DC Miscellaneous Information (Post-op Orders (for Pharmacy)) STAT ONCE XX ; Start 03/26/17 at 09:15; Stop 03/26/17 at 09:20; Status DC Enoxaparin Sodium (Lovenox Inj) 40 mg Q24H SQ Last administered on 03/27/17 11 :36; Start 03/27/17 at 11:00 Morphine Sulfate (Morphine Inj) 3 mg Q3H PRN IV PUSH Pain >7 when off SOLUTION DESIGN AND ANALYSIS MANAGER Last administered on 03/26/17 14:48; Start 03/26/17 at 09:15 Acetaminophen/ Hydrocodone Bitart ([place] 7.5-325 Mg) 1 tab Q4H PRN PO PAIN LESS THAN 5 ON SCALE; Start 03/26/17 at 09:15 Acetaminophen/ Hydrocodone Bitart ([place] 7.5-325 Mg) 2 tab Q4H PRN PO PAIN SCALE 5 TO 10 Last administered on 03/27/17 09:40; Start 03/26/17 at 09:15 Multivitamins/ Minerals Therapeutic (Theragran M Tab) 1 tab BID PO ; Start 03/27 at 21:00; Stop 05/26/17 at 20:59 Ondansetron HCl (Zofran Inj) 4 mg Q6H PRN IVP NAUSEA OR VOMITING; Start at 09:15 Docusate Sodium (Colace) 100 mg BID PO ; Start 03/27/17 at 21:00 Bisacodyl (Dulcolax Supp) 10 mg DAILY PRN RECTAL CONSTIPATION; Start 03/26/17 at 09:15 Diphenhydramine HCl (Benadryl Inj) 25 mg Q6H PRN IV ITCHING; Start 03/26/17 at 09:15 Gentamicin Sulfate (Gentamicin Inj) 240 mg STK-MED ONCE .ROUTE Last administered on 03/26/17 10:58; Start 03/26/17 at 09:53; Stop 03/26/17 at 09:54 ; Status DC Midazolam HCl (Versed Inj) 2 mg STK-MED ONCE .ROUTE ; Start 03/26/17 at 10:10; Stop 9/18/17 at 10:11; Status DC Famotidine (Pepcid Inj) 20 mg STK-MED ONCE .ROUTE ; Start 03/26/17 at 10:10; Stop 03/26/17 at 10:11; Status DC Miscellaneous Information ALL NURSING DEPARTME... UNSCH PRN .XX SEE LABEL COMMENTS; Start 03/26/17 at 12:20; Stop 03/27/17 at 12:19; Status DC Dextrose (D50w (Vial) Inj) 50 ml UNSCH PRN IV HYPOGLYCEMIA-SEE COMMENTS; Start 03/26/17 at 14:00 Glucagon (Glucagon Inj) 1 mg UNSCH PRN OTHER HYPOGLYCEMIA-SEE COMMENTS; Start 03/26/17 at 14:00 Insulin Aspart (NovoLOG SUPPLEMENTAL SCALE) 1 ACHS SLIDING SCALE SQ Last administered on 03/27/17t 11:44; Start 03/26/17 at 17:00 A/P Assessment and Plan A/P - s/o right TKA- management per ortho -CAD-s/p stent placement; resume antiplatelets when ok with ortho will hold coreg and lisinopril due to low-normal BP and dizzy spells. continue to monitor the BP. -dyslipidemia; resumed statin -diabetes mellitus; resumed levemir- accu-check with SSI -DVT prophylaxis with Lovenox- per ortho Yumi Anaya MD Mar 27, 2017 13:38
--- NOTE | 2017-03-27 16:57 | MB ---
cc: STACI GLASS M.D. DATE OF CONSULTATION 03/27/2017 REASON FOR CONSULTATION Lightheadedness and hypotension status post right knee surgery. HISTORY OF THE PRESENT ILLNESS Mr. Leon is a 71-year-old white male well-known to me with history of coronary artery disease, hypertension, mild ischemic cardiomyopathy, who is one day status post right TKA. The patient was getting out of bed with assistance today for increasing his mobility and became lightheaded. According to the nursing staff his blood pressure briefly dropped to 60 systolic, although that is not recorded in the current chart. The patient was put back to bed and his pressure quickly improved. He did receive medications this morning. A number of his cardiac medications have been switched to other equivalents here in the hospital and are not the ones he takes at home. His blood pressure is stable now lying in bed and he is asymptomatic. He tells me he has been having some episodes of lightheadedness at home at times although he did not mention this in the office when I saw him back in December. He has had no recent angina. He denies any shortness of breath. He denies any syncope. PAST MEDICAL HISTORY 1. It is noted that the patient has had similar events that were felt to be vagal and orthostatic hypotension during previous hospitalizations and at [facility] two times last year. His medications were adjusted at those times accordingly. 2. He has chronic angina. 3. Arteriosclerotic heart disease. 4. Familial combined hyperlipidemia. 5. Remote myocardial infarction but no history of heart failure. A most recent ejection fraction by his nuclear stress test February 08, 2016 40-45%. 6. He has a history of diabetes. 7. Osteoarthritis. Denies stroke or transient ischemic attack. PAST SURGICAL HISTORY 1. Remote stent implant to LAD around 1989. 2. Continued success by cardiac catheterization in 2009. Other surgical history: 1. Cardiac catheterization. 2. Hernia repair. MEDICATIONS 1. Multivitamin b.i.d. 2. Colace 100 mg b.i.d. 3. Lovenox 40 mg subcu q.24 h. 4. Potassium 20 mEq daily. 5. Tricor 145 mg daily. 6. Proscar 5 mg daily. 7. Lisinopril 10 mg daily. 8. He takes fosinopril 10 mg daily at home. 9. Furosemide 20 mg daily. 10. Isosorbide mononitrate 60 mg daily. 11. Carvedilol 6.25 mg p.o. b.i.d. here. At home he takes Coreg CR 20 mg daily. 12. Wellbutrin 150 mg q.12 h. 13. Neurontin 600 mg b.i.d. 14. Levemir insulin 38 units at bedtime. 15. Metformin 1000 mg at bedtime. 16. Ambien 10 mg p.r.n. insomnia. 17. Protonix 20 mg at bedtime. 18. Pravachol 80 milligrams bedtime. 19. He is receiving a number of pain narcotics and pain medications. ALLERGIES INFLUENZA VACCINE AND ADHESIVES. SOCIAL HISTORY The patient is , lives with his spouse. Was a cigarette smoker for most of his life, since age [age] but quit in 1999. Occasional alcohol. Denies recreational drugs. No regular exercise. FAMILY HISTORY Noncontributory. REVIEW OF SYSTEMS Denies lower extremity edema or claudication. Denies fevers, chills, night sweats, nausea, vomiting, diarrhea. Denies any palpitations. Has occasional lightheadedness but no recent syncope. Otherwise his 12-point review of systems is negative except for that mentioned in HPI. PHYSICAL EXAMINATION GENERAL: Elderly white male lying in bed. The right leg is elevated in a sling. Right leg bandaged from hip to foot. VITAL SIGNS: Blood pressure 105/50 mmHg, heart rate is 71 and regular, respiratory rate 18, temperature 96.3, oxygen saturation 92% on room air. HEENT: Head is normocephalic and atraumatic. Pupils equal, round and react to light. Sclerae anicteric. Extraocular movements intact. NECK: The neck is supple. There is no adenopathies. No jugular venous tension at 30 degrees. Carotid upstrokes are normal. There are no bruits. LUNGS: Clear. HEART: PMI is not displaced. S1-S2 are normal. There are no murmurs, gallops, clicks or rubs. ABDOMEN: Obese. Bowel sounds present, soft, nontender. No hepatosplenomegaly, masses or bruits. EXTREMITIES: No cyanosis, clubbing or edema. The right leg is bandaged and elevated as mentioned above. Perfusion is adequate in the upper and lower extremities. NEUROLOGIC: Exam is grossly intact. No EKG available. LABORATORY DATA CBC white count 8.6, hemoglobin 11.7, hematocrit 33.4, platelet count 135,000. Chemistries sodium 140, potassium 3.7, chloride 105, CO2 28.4, BUN 23, creatinine 0.96, glucose 100, calcium 8.7. IMAGING No chest x-ray available. IMPRESSION 1. Brief episode of hypotension possibly related to orthostasis or vasovagal etiology. Currently resolved. 2. ASHD with angina pectoris functional class II. 3. Mild history of ischemic cardiomyopathy with mild left ventricular dysfunction, currently compensated. 4. Hypertensive heart disease, well-controlled. 5. Diabetes mellitus type 2. 6. Remote stent implant proximal LAD patent in 2009 by cardiac catheterization. 7. Left ventricular ejection fraction 40-45% by most recent noninvasive studies. 8. Status post right total knee arthroplasty. RECOMMENDATIONS I suspect his brief episode of hypotension is multifactorial but he has experienced this before during stress periods. Some of it may be related to the interchange of his medications which are not currently available on formulary. I see that his Coreg and lisinopril are currently on hold and I am going to discontinue those, and I would suggest if his pressure is adequate tomorrow he can restart his home medication Coreg CR 20 mg daily but I would continue to hold his ABIMBOLA inhibitor therapy at least for one more day and then when restarted should restart his fosinopril at half the dose of 5 mg daily. He can be sent home on that if stable and then I can make further adjustments as an outpatient if need be. I have discussed these plans with the patient in detail. He understands and his will bring his Coreg CR and fosinopril to the hospital tomorrow. Otherwise he appears stable from a cardiovascular standpoint and can continue with his usual postoperative care. I will follow him with you. Thank you for allowing me to participate in the care of this patient. MD CLAIRE Hudson/SILVIA /3:36 PM /4:18 PM
[2017-03-27] MEDS: TAMSULOSIN HCL 0.4 MG CAP PO SCH (17:29)
[2017-03-27] MEDS: INSULIN DETEMIR 100 UNITS/ML VIAL SQ SCH (20:13)
[2017-03-27] MEDS: PANTOPRAZOLE SOD 20 MG DELAYED RELEASE TAB PO SCH (20:16)
[2017-03-27] MEDS: DOCUSATE SODIUM 100 MG CAP PO SCH (20:16)
[2017-03-27] MEDS: PRAVASTATIN SOD 80 MG TAB PO SCH (20:16)
[2017-03-27] MEDS: MULTIVITAMINS/MINERALS THERAPEUTIC TAB PO SCH (20:16)
[2017-03-28] MEDS: SODIUM CHLOR 0.9% 1000 ML INJ 1,000 ML IV SCH ×3 (00:26→21:13)
[2017-03-28] MEDS: ACETAMINOPHEN/HYDROcodone 325 MG/7.5 MG TAB PO PRN ×5 (05:39→21:42)
[2017-03-28 08:00] VITALS: BP 145/78; PULSE 88; RESP 17; TEMP 97.8; O2SAT 92
--- NOTE | 2017-03-28 08:07 | PD.ORT.PN ---
Subjective Post Op Day #: 2 Subjective Remarks pain tolerable. confused last night. unable to participate in PT yesterday due to hypotension. Objective Vitals Vital Signs Date Time Temp Pulse Resp B/P (MAP) Pulse Ox O2 Delivery O2 Flow Rate FiO2 03/27/17 20:10 100.3 82 17 140/71 (94) 93 03/27/17 18:30 18 03/27/17 16:00 99.6 81 18 125/61 (82) 92 03/27/17 14:52 18 03/27/17 12:00 96.3 71 18 105/50 (68) 92 03/27/17 09:04 96 21 03/27/17 08:07 97.5 77 18 115/67 (83) 96 I/O 03/27/17 03/27/17 03/27/17 03/28/17 03/28/17 03/28/17 07:00 15:00 23:00 07:00 15:00 23:00 Intake Total 580 ml 840 ml 480 ml 240 ml Output Total 1950 ml 1300 ml 750 ml Balance -1370 ml -460 ml -270 ml 240 ml Intake Oral 480 ml 840 ml 480 ml 240 ml IV Total 100 ml Output Urine Total 1950 ml 1300 ml 750 ml # Voids 3 # Bowel Movements 0 0 0 Result Diagram: 03/27/1735 03/27/1735 Imaging Last 24 hours Impressions Knee X-Ray 03/26/17912 Signed Impressions: Service Date/Time: Sunday, March 26, 2017 12:46 - CONCLUSION: Status post total knee arthroplasty. Ted Peguero MD Objective Remarks in bed, nad incision no erythema, no drainage neg homans nvi Assessment & Plan Ortho Post Op Day #: 2 Problem List: Assessment and Plan s/p R TKA wbat daily dressing changes lovenox d/c planning home with hhc and pt vs snf - Thurs PT hypotension - seen by cardiology rx in chart f/up dr. alcantara 2 weeks Tay Pandey Mar 28, 2017 08:07
[2017-03-28 08:24] LABS: HEMATOCRIT 36.1 % (39.0-51.0); MEAN CELL VOLUME 87.4 FL (80.0-100.0); MEAN CORPUSCULAR HEMOGLOBIN 30.9 PG (27.0-34.0); MEAN CORPUSCULAR HGB CONC 35.3 % (32.0-36.0); PLATELET COUNT 165 TH/MM3 (150-450); RED BLOOD COUNT 4.13 MIL/MM3 (4.50-5.90); RED CELL DISTRIBUTION WIDTH 14.4 % (11.6-17.2); REVIEW FLAG FINAL
[2017-03-28] MEDS: GABAPENTIN 300 MG CAP PO SCH ×2 (08:26→21:40)
[2017-03-28] MEDS: buPROPion HCL 150 MG SUSTAINED RELEASE TAB PO SCH ×2 (08:26→21:41)
[2017-03-28] MEDS: DOCUSATE SODIUM 100 MG CAP PO SCH ×2 (08:26→21:40)
[2017-03-28] MEDS: FUROSEMIDE 20 MG TAB PO SCH (08:27)
[2017-03-28] MEDS: MULTIVITAMINS/MINERALS THERAPEUTIC TAB PO SCH ×2 (08:27→21:40)
[2017-03-28] MEDS: FENOFIBRATE 145 MG TAB PO SCH (08:27)
[2017-03-28] MEDS: metFORMIN HCL 500 MG TAB PO SCH ×3 (08:27→21:41)
[2017-03-28] MEDS: FINASTERIDE 5 MG TAB PO SCH (08:27)
[2017-03-28] MEDS: POTASSIUM CHLORIDE 20 MEQ CONTROLLED RELEASE TAB PO SCH (08:27)
[2017-03-28] MEDS: ISOSORBIDE MONONITRATE 60 MG TAB PO SCH (08:28)
[2017-03-28] MEDS: INSULIN ASPART SUPPLEMENTAL SCALE SQ SCH ×4 (08:33→21:43)
[2017-03-28] MEDS: SODIUM CHLORIDE 0.9% FLUSH 5 ML FLUSH IVF SCH ×2 (08:36→21:53)
--- NOTE | 2017-03-28 08:39 | MP ---
cc: ZI SU DATE OF SURGERY 03/26/17 PREOPERATIVE DIAGNOSIS Right knee osteoarthritis POSTOPERATIVE DIAGNOSES Right knee osteoarthritis PROCEDURE Right total knee arthroplasty SURGEON Dr. Ronel Su CARDIOVASCULAR LAB DIRECTOR STEPHEN Weinberg ANESTHESIA Spinal with an adductor canal femoral nerve block. ESTIMATED BLOOD LOSS 50 mL COMPLICATIONS None. IMPLANTS USED DePuy attune size eight posterior stabilized femoral component, size eight rotating platform tibia baseplate, size six polyethylene tibial insert, size 38 patella. JUSTIFICATION The patient is a 71-year-old male with history of severe end-stage osteoarthritis involving the right knee. He has severe disabling pain with standing, walking, ambulation, weight bearing activities and severe pain at rest. He has failed greater than 3 months of nonoperative conservative treatment to include medication, therapy, injections, ambulatory assistive aid, home exercise program, activity modification. X-ray of the right knee reveals severe end-stage osteoarthritis with [id number] joint space narrowing, subchondral sclerosis, subchondral cyst osteophyte formation with varus deformity. The patient counseled as to risks, benefits and alternative to total knee arthroplasty. Risks were discussed but not limited to bleeding, infection, damage to nerves, blood vessels, pain, stiffness, failure of components, blood clots, pulmonary embolism and even . The patient's pain is severe. He favored the benefits over the risks. He did wish to proceed with surgery. PROCEDURE IN DETAIL A written consent was obtained. The patient identified by name, was taken to the operating room. Spinal anesthesia was administered as well as an adductor canal femoral nerve block. The patient was placed supine on the operating room table. A well-padded tourniquet was placed on the right thigh. The right lower extremity was prepped and draped using isopropyl alcohol, Hibiclens solution and Chloraprep solution. He did receive again 2 grams of IV Ancef and 1 gram of IV vancomycin preoperatively. After time-out was performed an Esmarch bandage was used to exsanguinate the right lower extremity. Tourniquet inflated to 250 mmHg. A longitudinal incision was made over the anterior aspect of the right knee. A medial parapatellar arthrotomy was performed. The patella was everted, 9 mm of patella was resected. A size 38 mm guide was placed. Three drill holes were placed and a 38 mm trial fit well. Attention was turned to the femur with intramedullary guide was placed and the distal femoral guide was set to remove 10 mm of distal femur 5 degrees off the anatomic valgus axis alignment. An oscillating saw was used to perform a distal femoral cut. Attention was turned to the tibia where an extramedullary tibial guide was set to remove 5 mm off the lowest portion of medial tibial plateau. Tibial guide was pinned in place. Tibia cut was performed. A 5-mm spacer block showed full extension. Attention was turned back to the femur where the AP sizing block measured size eight. The anterior reference three degree external rotation guide was used to pin a size [address] Anterior and posterior chamfer cuts were performed. A size eight PCL box was pinned in place and PCL box was cut with an oscillating saw. The medial lateral meniscus remnants were removed as well as bone and soft tissue. Debris from posterior portion of the knee. A size eight tibia base was pinned in placed. Tibia was drilled and punched. Trial components were evaluated and trial components cemented in place. With current components, leg achieved full extension at 0 degrees of flexion 140, no evidence of tibial lift-off. Varus-valgus balance appeared appropriate and symmetric. The patella was noted to track centrally. Tourniquet was deflated. Bovie cautery was used for hemostasis. Surgical wound was thoroughly irrigated with sterile saline pulse lavage antibiotic impregnated solution. The arthrotomy incision was closed with #1 Vicryl suture. Subcutaneous layer with 2-0 Vicryl suture. Skin was closed with Dermabond. Sterile dressing applied. The patient tolerated the procedure well. No intraoperative complications noted. Ramses Pandey, physician medical assistant certified, was present during the entire procedure to include patient positioning and the procedure itself. The medical necessity of physician medical assistant was indicated in this case due to the complexity of the procedure. He assisted with appropriate manipulation of the leg and also retraction of muscle, tendon, bone, neurovascular structures. He assisted with preparation of bone and also implantation of the prosthetic replacement. MD SAUL Parsons/ /12:00 PM /8:12 AM
[2017-03-28 08:46] LABS: POTASSIUM 4.5 MEQ/L (3.5-5.1)
[2017-03-28] MEDS ORDERED: CARVEDILOL 20 MG PO SCH (09:00)
--- NOTE | 2017-03-28 09:09 | PD.CARD.PN ---
Subjective Subjective Remarks Doing better. No lightheadedness or hypotension today. Denies CP or SOB. Objective Medications Current Medications Medications (Trade) Dose Ordered Sig/Phylicia Route PRN Reason Start Time Stop Time Status Last Admin Dose Admin Povidone Iodine (Betadine 7.5% Scrub) 1 applic ONCE TOPICAL 03/26/17 07:00 03/29/17 06:59 03/26/17 07:57 Chlorhexidine Gluconate (Hibiclens 4% Top Soln) 1 applic ONCE TOPICAL 03/26/17 07:00 03/29/17 06:59 Cefazolin Sodium/ Dextrose 50 ml @ 100 mls/hr TOOL PROCUREMENT COORDINATOR IV 03/26/17 07:00 03/29/17 06:59 03/26/17 08:38 Vancomycin HCl 1000 mg/Sodium Chloride 250 ml @ 250 mls/hr TOOL PROCUREMENT COORDINATOR IV 03/26/17 07:00 03/29/17 06:59 03/26/17 08:40 Lactated Ringer's 1,000 ml @ 30 mls/hr Q24H PRN IV SEE LABEL COMMENTS 03/26/17 07:00 03/29/17 06:59 03/26/17 07:30 Sodium Chloride 500 ml @ 30 mls/hr [id number] PRN IV SEE LABEL COMMENTS 03/26/17 07:00 03/29/17 06:59 Metoprolol Tartrate (Lopressor) 25 mg TOOL PROCUREMENT COORDINATOR PRN PO SEE LABEL COMMENTS 03/26/17 07:00 03/29/17 06:59 Povidone Iodine (Betadine 5% Antisepsis Kit) 1 applic TOOL PROCUREMENT COORDINATOR PRN EACH NARE SEE LABEL COMMENTS 03/26/17 07:00 03/29/17 06:59 03/26/17 06:50 Chlorhexidine Gluconate (Chlorhexidine 2% Cloth) 3 pack TOOL PROCUREMENT COORDINATOR PRN TOPICAL SEE LABEL COMMENTS 03/26/17 07:00 03/29/17 06:59 03/26/17 06:45 Insulin Human Regular (NovoLIN R INJ) See Protocol Table ... TOOL PROCUREMENT COORDINATOR PRN SQ SEE PROTOCOL TABLE 03/26/17 07:00 03/29/17 06:59 Bupropion HCl (Wellbutrin Sr) 150 mg Q12HR PO 03/26/17 21:00 03/28/17 08:26 Fenofibrate (Tricor) 145 mg DAILY PO 03/27/17 09:00 03/28/17 08:27 Finasteride (Proscar) 5 mg DAILY PO 03/27/17 09:00 03/28/17 08:27 Furosemide (Lasix) 20 mg DAILY PO 03/27/17 09:00 03/28/17 08:27 Gabapentin (Neurontin) 600 mg BID PO 03/26/17 21:00 03/28/17 08:26 Insulin Detemir (Levemir Inj) 38 units HS SQ 03/26/17 21:00 03/27/17 20:13 Isosorbide Mononitrate (Imdur) 60 mg DAILY PO 03/27/17 09:00 03/28/17 08:28 Metformin HCl (Glucophage) 1,000 mg HS PO 03/26/17 21:00 03/27/17 20:15 Metformin HCl (Glucophage) 500 mg BIDPC PO 03/26/17 18:00 03/28/17 08:27 Potassium Chloride (KCl) 20 meq DAILY PO 03/27/17 10:00 03/28/17 08:27 Tamsulosin HCl (Flomax) 0.8 mg DAILY@1600 PO 03/26/17 16:00 03/27/17 17:29 Zolpidem Tartrate (Ambien) 10 mg HS PRN PO INSOMNIA 03/26/17 21:00 03/27/17 21:33 Pantoprazole Sodium (Protonix) 20 mg HS PO 03/26/17 21:00 03/27/17 20:16 Pravastatin Sodium (Pravachol) 80 mg HS PO 03/26/17 21:00 03/27/17 20:16 Sodium Chloride 1,000 ml @ 100 mls/hr Q10H IV 03/26/17 09:13 03/26/17 12:35 IV Flush (NS Flush) 2 ml UNSCH PRN IVF FLUSH AFTER USING IV ACCESS 03/26/17 09:15 IV Flush (NS Flush) 2 ml BID IVF 03/26/17 21:00 03/28/17 08:36 Enoxaparin Sodium (Lovenox Inj) 40 mg Q24H SQ 03/27/17 11:00 03/27/17 11:36 Morphine Sulfate (Morphine Inj) 3 mg Q3H PRN IV PUSH Pain >7 when off PRODUCT SAFETY COMPLIANCE LEADER 03/26/17 09:15 03/26/17 14:48 Acetaminophen/ Hydrocodone Bitart ([place] 7.5-325 Mg) 1 tab Q4H PRN PO PAIN LESS THAN 5 ON SCALE 03/26/17 09:15 03/27/17 13:52 Acetaminophen/ Hydrocodone Bitart ([place] 7.5-325 Mg) 2 tab Q4H PRN PO PAIN SCALE 5 TO 10 03/26/17 09:15 03/28/17 05:39 Multivitamins/ Minerals Therapeutic (Theragran M Tab) 1 tab BID PO 03/27/17 21:00 05/26/17 20:59 03/28/17 08:27 Ondansetron HCl (Zofran Inj) 4 mg Q6H PRN IVP NAUSEA OR VOMITING 03/26/17 09:15 Docusate Sodium (Colace) 100 mg BID PO 03/27/17 21:00 03/28/17 08:26 Bisacodyl (Dulcolax Supp) 10 mg DAILY PRN RECTAL CONSTIPATION 03/26/17 09:15 Diphenhydramine HCl (Benadryl Inj) 25 mg Q6H PRN IV ITCHING 03/26/17 09:15 Dextrose (D50w (Vial) Inj) 50 ml UNSCH PRN IV HYPOGLYCEMIA-SEE COMMENTS 03/26/17 14:00 Glucagon (Glucagon Inj) 1 mg UNSCH PRN OTHER HYPOGLYCEMIA-SEE COMMENTS 03/26/17 14:00 Insulin Aspart (NovoLOG SUPPLEMENTAL SCALE) 1 ACHS SLIDING SCALE SQ 03/26/17 17:00 03/28/17 08:33 Patient Own Medication Coreg CR 20 mg PO daily... DAILY PO 03/28/17 09:00 Future Hold Vital Signs / I&O Vital Signs Date Time Temp Pulse Resp B/P (MAP) Pulse Ox O2 Delivery O2 Flow Rate FiO2 03/27/17 20:10 100.3 82 17 140/71 (94) 93 03/27/17 18:30 18 03/27/17 16:00 99.6 81 18 125/61 (82) 92 03/27/17 14:52 18 03/27/17 12:00 96.3 71 18 105/50 (68) 92 03/27/17 09:04 96 21 I/O 9/1903/27/17 03/27/17 03/28/17 03/28/17 03/28/17 07:00 15:00 23:00 07:00 15:00 23:00 Intake Total 580 ml 840 ml 480 ml 240 ml Output Total 1950 ml 1300 ml 750 ml Balance -1370 ml -460 ml -270 ml 240 ml Intake Oral 480 ml 840 ml 480 ml 240 ml IV Total 100 ml Output Urine Total 1950 ml 1300 ml 750 ml # Voids 3 # Bowel Movements 0 0 0 Physical Exam Vital Signs Date Time Temp Pulse Resp B/P (MAP) Pulse Ox O2 Delivery O2 Flow Rate FiO2 03/27/17 20:10 100.3 82 17 140/71 (94) 93 03/27/17 09:04 21 03/26/17 17:00 Room Air 03/26/17 13:30 2 No JVD Lungs; CTA Heart RRR, no murmur. Ext: No C/C/E Neuro: Npn-focal Laboratory Laboratory Tests Test 03/28/17 07:40 White Blood Count 10.0 TH/MM3 Red Blood Count 4.13 MIL/MM3 Hemoglobin 12.7 GM/DL Hematocrit 36.1 % Mean Corpuscular Volume 87.4 FL Mean Corpuscular Hemoglobin 30.9 PG Mean Corpuscular Hemoglobin Concent 35.3 % Red Cell Distribution Width 14.4 % Platelet Count 165 TH/MM3 Mean Platelet Volume 8.0 FL Blood Urea Nitrogen 18 MG/DL Creatinine 0.85 MG/DL Random Glucose 205 MG/DL Calcium Level 9.4 MG/DL Sodium Level 135 MEQ/L Potassium Level 4.5 MEQ/L Chloride Level 99 MEQ/L Carbon Dioxide Level 30.0 MEQ/L Anion Gap 6 MEQ/L Estimat Glomerular Filtration Rate 89 ML/MIN Imaging Last 48 hours Impressions Knee X-Ray 03/26/17 0913 Signed Impressions: Service Date/Time: Sunday, March 26, 2017 12:46 - CONCLUSION: Status post total knee arthroplasty. Ted Peguero MD Assessment and Plan Problem List: (1) Lightheaded ICD Codes: R42 - Dizziness and giddiness (2) Orthostatic hypotension ICD Codes: I95.1 - Orthostatic hypotension (3) Arteriosclerotic heart disease (ASHD) ICD Codes: I25.10 - Atherosclerotic heart disease of [place] coronary artery without angina pectoris (4) Ischemic cardiomyopathy ICD Codes: I25.5 - Ischemic cardiomyopathy (5) Diabetes mellitus ICD Codes: E11.9 - Type 2 diabetes mellitus without complications (6) S/P TKR (total knee replacement) ICD Codes: Z96.659 - Presence of unspecified artificial knee joint Assessment and Plan Patient to take his own Coreg CR 20 mg daily (not on formulary here). Hold fosinopril another 24 hours and resume tomorrow 5 mg daily (half prior dose). Resume antiplatelet Rx. Increase activity with assistance today as tolerates. Following with you. Code Status Full Discussed Condition With Patient and event staff member. Avtar Larson MD Mar 28, 2017 09:09
[2017-03-28] MEDS: ASPIRIN EC 81 MG TABEC PO SCH (09:15)
--- NOTE | 2017-03-28 10:11 | HHI.PR ---
Subjective Remarks in no acute distress. BP has improved. no dizziness. pain seems to be fairly controlled. d/w the RN. Objective Vitals Vital Signs Date Time Temp Pulse Resp B/P (MAP) Pulse Ox O2 Delivery O2 Flow Rate FiO2 03/28/17 08:00 97.8 88 17 145/78 (100) 92 03/27/17 20:10 100.3 82 17 140/71 (94) 93 03/27/17 18:30 18 03/27/17 16:00 99.6 81 18 125/61 (82) 92 03/27/17 14:52 18 03/27/17 12:00 96.3 71 18 105/50 (68) 92 I/O 03/27/17 03/27/17 03/27/17 03/28/17 03/28/17 03/28/17 07:00 15:00 23:00 07:00 15:00 23:00 Intake Total 580 ml 840 ml 480 ml 240 ml Output Total 1950 ml 1300 ml 750 ml Balance -1370 ml -460 ml -270 ml 240 ml Intake Oral 480 ml 840 ml 480 ml 240 ml IV Total 100 ml Output Urine Total 1950 ml 1300 ml 750 ml # Voids 3 # Bowel Movements 0 0 0 Result Diagram: 03/28/1740 03/28/17739 Imaging Last Impressions Knee X-Ray 03/26/17912 Signed Impressions: Service Date/Time: Sunday, March 26, 2017 12:46 - CONCLUSION: Status post total knee arthroplasty. Ted Peguero MD Objective Remarks GENERAL: This is a well-nourished, well-developed patient, in no apparent distress. CARDIOVASCULAR: Regular rate and regular rhythm without murmurs, gallops, or rubs. RESPIRATORY: Clear to auscultation. Breath sounds equal bilaterally. No wheezes , rales, or rhonchi. GASTROINTESTINAL: Abdomen soft, non-tender, nondistended. Normal, active bowel sounds MUSCULOSKELETAL: right knee covered with clean dressing. NEURO: Alert & Oriented x4 to person, place, time, situation. Moves all ext x4 Medications and IVs Current Medications Dexamethasone Sodium Phosphate (Decadron Inj) 10 mg CLASSROOM TEACHER PRN IV GIVE IN OR HOLDING Last administered on 03/26/17t 07:35; Start 03/26/17 at 07:00; Stop at 06:59; Status DC Povidone Iodine (Betadine 7.5% Scrub) 1 applic ONCE TOPICAL Last administered on 03/26/17 07:57; Start 03/26/17 at 07:00; Stop 03/29/17 at 06:59 Chlorhexidine Gluconate (Hibiclens 4% Top Soln) 1 applic ONCE TOPICAL ; Start at 07:00; Stop 03/29/17 at 06:59 Cefazolin Sodium/ Dextrose 50 ml @ 100 mls/hr CLASSROOM TEACHER IV Last administered on 03/26/17 08:38; Start 03/26/17 at 07:00; Stop 03/29/17 at 06:59 Vancomycin HCl 1000 mg/Sodium Chloride 250 ml @ 250 mls/hr CLASSROOM TEACHER IV Last administered on 03/26/17 08:40; Start 03/26/17 at 07:00; Stop 03/29/17 at 06:59 Tranexamic Acid 1415 mg/Sodium Chloride 114.15 ml @ 200 mls/ hr ONCE IV Last administered on 03/26/17 10:50; Start 03/26/17 at 07:00; Stop 03/26/17 at 17:00 ; Status DC Ropivacaine 24.63 ml/Ketorolac Tromethamine 30 mg/Epinephrine HCl 0.5 mg/ Clonidine 80 mcg/ Sodium Chloride 100 ml @ 200 mls/hr ONCE P-ARTICULR Last administered on 03/26/17 11:55; Start 03/26/17 at 07:00; Stop 03/26/17 at 17:00 ; Status DC Tranexamic Acid 3000 mg/Sodium Chloride 130 ml @ 260 mls/hr ONCE P-ARTICULR Last administered on 03/26/17 12:00; Start 03/26/17 at 07:00; Stop 03/26/17 at 17:00; Status DC Lactated Ringer's 1,000 ml @ 30 mls/hr Q24H PRN IV SEE LABEL COMMENTS Last administered on 03/26/17 07:30; Start 03/26/17 at 07:00; Stop 03/29/17 at 06:59 Sodium Chloride 500 ml @ 30 mls/hr [id number] PRN IV SEE LABEL COMMENTS; Start at 07:00; Stop 03/29/17 at 06:59 Metoprolol Tartrate (Lopressor) 25 mg CLASSROOM TEACHER PRN PO SEE LABEL COMMENTS; Start 03/26/17 at 07:00; Stop 03/29/17 at 06:59 Povidone Iodine (Betadine 5% Antisepsis Kit) 1 applic CLASSROOM TEACHER PRN EACH NARE SEE LABEL COMMENTS Last administered on 03/26/17 06:50; Start 03/26/17 at 07:00 ; Stop 03/29/17 at 06:59 Chlorhexidine Gluconate (Chlorhexidine 2% Cloth) 3 pack CLASSROOM TEACHER PRN TOPICAL SEE LABEL COMMENTS Last administered on 03/26/17 06:45; Start 03/26/17 at 07:00 ; Stop 03/29/17 at 06:59 Insulin Human Regular (NovoLIN R INJ) See Protocol Table ... CLASSROOM TEACHER PRN SQ SEE PROTOCOL TABLE; Start 03/26/17 at 07:00; Stop 03/29/17 at 06:59 Bupropion HCl (Wellbutrin Sr) 150 mg Q12HR PO Last administered on 03/28/17 08 :26; Start 03/26/17 at 21:00 Fenofibrate (Tricor) 145 mg DAILY PO Last administered on 03/28/17 08:27; Start 03/27/17 at 09:00 Finasteride (Proscar) 5 mg DAILY PO Last administered on 03/28/17 08:27; Start 03/27/17 at 09:00 Lisinopril (Prinivil) 10 mg DAILY PO Last administered on 03/27/17 08:15; Start 03/27/17 at 09:00; Stop 03/27/17 at 15:35; Status DC Furosemide (Lasix) 20 mg DAILY PO Last administered on 03/28/17 08:27; Start 03/27/17 at 09:00 Gabapentin (Neurontin) 600 mg BID PO Last administered on 03/28/17 08:26; Start 03/26/17 at 21:00 Insulin Detemir (Levemir Inj) 38 units HS SQ Last administered on 03/27/17 20: 13; Start 03/26/17 at 21:00 Isosorbide Mononitrate (Imdur) 60 mg DAILY PO Last administered on 03/28/17 08 :28; Start 03/27/17 at 09:00 Metformin HCl (Glucophage) 1,000 mg HS PO Last administered on 03/27/17 20:15 ; Start 03/26/17 at 21:00 Metformin HCl (Glucophage) 500 mg BIDPC PO Last administered on 03/28/17 08:27 ; Start 03/26/17 at 18:00 Potassium Chloride (KCl) 20 meq DAILY PO Last administered on 03/28/17 08:27; Start 03/27/17 at 10:00 Tamsulosin HCl (Flomax) 0.8 mg DAILY@1600 PO Last administered on 03/27/17 17: 29; Start 03/26/17 at 16:00 Zolpidem Tartrate (Ambien) 10 mg HS PRN PO INSOMNIA Last administered on 21:33; Start 03/26/17 at 21:00 Carvedilol (Coreg) 6.25 mg BID PO Last administered on 03/27/17 08:14; Start 03/27/17 at 09:00; Stop 03/27/17 at 15:34; Status DC Pantoprazole Sodium (Protonix) 20 mg HS PO Last administered on 03/27/17 20:16 ; Start 03/26/17 at 21:00 Pravastatin Sodium (Pravachol) 80 mg HS PO Last administered on 03/27/17 20:16 ; Start 03/26/17 at 21:00 Sodium Chloride 1,000 ml @ 100 mls/hr Q10H IV Last administered on 03/26/17 12:35; Start 03/26/17 at 09:13 IV Flush (NS Flush) 2 ml UNSCH PRN IVF FLUSH AFTER USING IV ACCESS; Start 03/26 at 09:15 IV Flush (NS Flush) 2 ml BID IVF Last administered on 03/28/17 08:36; Start at 21:00 Cefazolin Sodium 1000 mg/Sodium Chloride 100 ml @ 200 mls/hr Q6H IV Last administered on 03/27/17 03:05; Start 03/26/17 at 15:00; Stop 03/27/17 at 03:29 ; Status DC Miscellaneous Information (Post-op Orders (for Pharmacy)) STAT ONCE XX ; Start 03/26/17 at 09:15; Stop 03/26/17 at 09:20; Status DC Enoxaparin Sodium (Lovenox Inj) 40 mg Q24H SQ Last administered on 03/27/17 11 :36; Start 03/27/17 at 11:00 Morphine Sulfate (Morphine Inj) 3 mg Q3H PRN IV PUSH Pain >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 Last administered on 03/26/17 14:48; Start 03/26/17 at 09:15 Acetaminophen/ Hydrocodone Bitart ([place] 7.5-325 Mg) 1 tab Q4H PRN PO PAIN LESS THAN 5 ON SCALE Last administered on 03/27/17 13:52; Start 03/26/17 at 09: 15 Acetaminophen/ Hydrocodone Bitart ([place] 7.5-325 Mg) 2 tab Q4H PRN PO PAIN SCALE 5 TO 10 Last administered on 03/28/17 09:47; Start 03/26/17 at 09:15 Multivitamins/ Minerals Therapeutic (Theragran M Tab) 1 tab BID PO Last administered on 03/28/17 08:27; Start 03/27/17 at 21:00; Stop 05/26/17 at 20: 59 Ondansetron HCl (Zofran Inj) 4 mg Q6H PRN IVP NAUSEA OR VOMITING; Start at 09:15 Docusate Sodium (Colace) 100 mg BID PO Last administered on 03/28/17 08:26; Start 03/27/17 at 21:00 Bisacodyl (Dulcolax Supp) 10 mg DAILY PRN RECTAL CONSTIPATION; Start 03/26/17 at 09:15 Diphenhydramine HCl (Benadryl Inj) 25 mg Q6H PRN IV ITCHING; Start 03/26/17 at 09:15 Gentamicin Sulfate (Gentamicin Inj) 240 mg STK-MED ONCE .ROUTE Last administered on 03/26/17 10:58; Start 03/26/17 at 09:53; Stop 03/26/17 at 09:54 ; Status DC Midazolam HCl (Versed Inj) 2 mg STK-MED ONCE .ROUTE ; Start 03/26/17 at 10:10; Stop 03/26/17 at 10:11; Status DC Famotidine (Pepcid Inj) 20 mg STK-MED ONCE .ROUTE ; Start 03/26/17 at 10:10; Stop 03/26/17 at 10:11; Status DC Miscellaneous Information ALL NURSING DEPARTME... UNSCH PRN .XX SEE LABEL COMMENTS; Start 03/26/17 at 12:20; Stop 03/27/17 at 12:19; Status DC Dextrose (D50w (Vial) Inj) 50 ml UNSCH PRN IV HYPOGLYCEMIA-SEE COMMENTS; Start 03/26/17 at 14:00 Glucagon (Glucagon Inj) 1 mg UNSCH PRN OTHER HYPOGLYCEMIA-SEE COMMENTS; Start 03/26/17 at 14:00 Insulin Aspart (NovoLOG SUPPLEMENTAL SCALE) 1 ACHS SLIDING SCALE SQ Last administered on 03/28/17t 08:33; Start 03/26/17 at 17:00 Patient Own Medication Coreg CR 20 mg PO daily... DAILY PO ; Start 03/28/17 at 09:00; Status Future Hold Aspirin (Ecotrin Ec) 81 mg DAILY PO Last administered on 03/28/17t 09:15; Start 03/28/17 at 09:15 Clopidogrel Bisulfate (Plavix) 75 mg DAILY PO ; Start 03/29/17 at 09:00 A/P Assessment and Plan A/P - s/o right TKA- management per ortho -CAD-s/p stent placement; resumed antiplatelets resumed coreg - hold lisinopril for now. continue to monitor the BP. cardiology evaluation appreciated. -dyslipidemia; resumed statin -diabetes mellitus; resumed levemir- accu-check with SSI -DVT prophylaxis with Lovenox- per ortho Yumi Anaya MD Mar 28, 2017 10:11
[2017-03-28] MEDS: ENOXAPARIN SODIUM 40 MG/0.4 ML SYRINGE SQ SCH (11:25)
[2017-03-28 11:27] VITALS: BP 121/67; PULSE 71; RESP 18; TEMP 96; O2SAT 96
[2017-03-28] MEDS ORDERED: ONDANSETRON ODT 4 MG TAB PO PRN (12:15)
[2017-03-28] MEDS: TAMSULOSIN HCL 0.4 MG CAP PO SCH (16:30)
[2017-03-28 16:34] VITALS: BP 114/71; PULSE 78; RESP 17; TEMP 96.4; O2SAT 96
[2017-03-28 20:25] VITALS: BP 111/65; PULSE 85; RESP 17; TEMP 98.8; O2SAT 93
[2017-03-28] MEDS ORDERED: MAGNESIUM HYDROXIDE SUSP 30 ML CUP PO SCH (21:00)
[2017-03-28] MEDS ORDERED: BISACODYL EC 5 MG TABEC PO SCH (21:00)
[2017-03-28] MEDS: PRAVASTATIN SOD 80 MG TAB PO SCH (21:40)
[2017-03-28] MEDS: PANTOPRAZOLE SOD 20 MG DELAYED RELEASE TAB PO SCH (21:40)
[2017-03-28] MEDS: INSULIN DETEMIR 100 UNITS/ML VIAL SQ SCH (21:42)
[2017-03-29] MEDS: ACETAMINOPHEN/HYDROcodone 325 MG/7.5 MG TAB PO PRN ×3 (06:23→13:28)
[2017-03-29] MEDS: SODIUM CHLOR 0.9% 1000 ML INJ 1,000 ML IV SCH ×2 (06:43→13:33)
[2017-03-29 07:57] LABS: HEMATOCRIT 35.2 % (39.0-51.0); MEAN CELL VOLUME 88.3 FL (80.0-100.0); MEAN CORPUSCULAR HEMOGLOBIN 30.6 PG (27.0-34.0); MEAN CORPUSCULAR HGB CONC 34.7 % (32.0-36.0); PLATELET COUNT 168 TH/MM3 (150-450); RED BLOOD COUNT 3.99 MIL/MM3 (4.50-5.90); RED CELL DISTRIBUTION WIDTH 14.5 % (11.6-17.2); REVIEW FLAG FINAL; WHITE BLOOD COUNT 9.2 TH/MM3 (4.0-11.0)
[2017-03-29 08:00] VITALS: BP 134/75; PULSE 83; RESP 17; TEMP 98.4; O2SAT 90
[2017-03-29] MEDS ORDERED: FUROSEMIDE 20 MG TAB PO PRN (08:00)
[2017-03-29] MEDS ORDERED: POTASSIUM CHLORIDE 20 MEQ CONTROLLED RELEASE TAB PO PRN (08:00)
--- NOTE | 2017-03-29 08:01 | PD.CARD.PN ---
Subjective Subjective Remarks No lightheadedness, SOB or CP. Doing well. Only complaint is constipation. Objective Medications Current Medications Medications (Trade) Dose Ordered Sig/Phylicia Route PRN Reason Start Time Stop Time Status Last Admin Dose Admin Bupropion HCl (Wellbutrin Sr) 150 mg Q12HR PO 03/26/17 21:00 03/28/17 21:41 Fenofibrate (Tricor) 145 mg DAILY PO 03/27/17 09:00 03/28/17 08:27 Finasteride (Proscar) 5 mg DAILY PO 03/27/17 09:00 03/28/17 08:27 Furosemide (Lasix) 20 mg DAILY PO 03/27/17 09:00 03/28/17 08:27 Gabapentin (Neurontin) 600 mg BID PO 03/26/17 21:00 03/28/17 21:40 Insulin Detemir (Levemir Inj) 38 units HS SQ 03/26/17 21:00 03/28/17 21:42 Isosorbide Mononitrate (Imdur) 60 mg DAILY PO 03/27/17 09:00 03/28/17 08:28 Metformin HCl (Glucophage) 1,000 mg HS PO 03/26/17 21:00 03/28/17 21:41 Metformin HCl (Glucophage) 500 mg BIDPC PO 03/26/17 18:00 03/28/17 16:30 Potassium Chloride (KCl) 20 meq DAILY PO 03/27/17 10:00 03/28/17 08:27 Tamsulosin HCl (Flomax) 0.8 mg DAILY@1600 PO 03/26/17 16:00 03/28/17 16:30 Zolpidem Tartrate (Ambien) 10 mg HS PRN PO INSOMNIA 03/26/17 21:00 03/27/17 21:33 Pantoprazole Sodium (Protonix) 20 mg HS PO 03/26/17 21:00 03/28/17 21:40 Pravastatin Sodium (Pravachol) 80 mg HS PO 03/26/17 21:00 03/28/17 21:40 Sodium Chloride 1,000 ml @ 100 mls/hr Q10H IV 03/26/17 09:13 03/26/17 12:35 IV Flush (NS Flush) 2 ml UNSCH PRN IVF FLUSH AFTER USING IV ACCESS 03/26/17 09:15 IV Flush (NS Flush) 2 ml BID IVF 03/26/17 21:00 03/28/17 08:36 Enoxaparin Sodium (Lovenox Inj) 40 mg Q24H SQ 03/27/17 11:00 03/28/17 11:25 Morphine Sulfate (Morphine Inj) 3 mg Q3H PRN IV PUSH 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 03/26/17 09:15 03/26/17 14:48 Acetaminophen/ Hydrocodone Bitart ([place] 7.5-325 Mg) 1 tab Q4H PRN PO PAIN LESS THAN 5 ON SCALE 03/26/17 09:15 03/27/17 13:52 Acetaminophen/ Hydrocodone Bitart ([place] 7.5-325 Mg) 2 tab Q4H PRN PO PAIN SCALE 5 TO 10 03/26/17 09:15 03/29/17 06:23 Multivitamins/ Minerals Therapeutic (Theragran M Tab) 1 tab BID PO 03/27/17 21:00 05/26/17 20:59 03/28/17 21:40 Ondansetron HCl (Zofran Inj) 4 mg Q6H PRN IVP NAUSEA OR VOMITING 03/26/17 09:15 Docusate Sodium (Colace) 100 mg BID PO 03/27/17 21:00 03/28/17 21:40 Bisacodyl (Dulcolax Supp) 10 mg DAILY PRN RECTAL CONSTIPATION 03/26/17 09:15 03/28/17 21:43 Diphenhydramine HCl (Benadryl Inj) 25 mg Q6H PRN IV ITCHING 03/26/17 09:15 Dextrose (D50w (Vial) Inj) 50 ml UNSCH PRN IV HYPOGLYCEMIA-SEE COMMENTS 03/26/17 14:00 Glucagon (Glucagon Inj) 1 mg UNSCH PRN OTHER HYPOGLYCEMIA-SEE COMMENTS 03/26/17 14:00 Insulin Aspart (NovoLOG SUPPLEMENTAL SCALE) 1 ACHS SLIDING SCALE SQ 03/26/17 17:00 03/28/17 21:43 Aspirin (Ecotrin Ec) 81 mg DAILY PO 03/28/17 09:15 03/28/17 09:15 Clopidogrel Bisulfate (Plavix) 75 mg DAILY PO 03/29/17 09:00 Magnesium Hydroxide (Milk Of Magnesia Liq) 30 ml HS PO 03/28/17 21:00 03/28/17 21:39 Bisacodyl (Dulcolax Ec) 10 mg HS PO 03/28/17 21:00 03/28/17 21:39 Ondansetron HCl (Zofran Odt) 4 mg Q8H PRN PO NAUSEA 03/28/17 12:15 03/28/17 12:31 Carvedilol (Coreg) 6.25 mg BID PO 03/29/17 09:00 Vital Signs / I&O Vital Signs Date Time Temp Pulse Resp B/P (MAP) Pulse Ox O2 Delivery O2 Flow Rate FiO2 03/28/17 20:25 98.8 85 17 111/65 (80) 93 03/28/17 16:34 96.4 78 17 114/71 (85) 96 03/28/17 11:27 96.0 71 18 121/67 (85) 96 03/28/17 08:00 97.8 88 17 145/78 (100) 92 I/O 03/28/17 03/28/17 03/28/17 03/29/17 03/29/17 03/29/17 07:00 15:00 23:00 07:00 15:00 23:00 Intake Total 240 ml 800 ml 240 ml 240 ml Output Total 1650 ml Balance 240 ml 800 ml -1410 ml 240 ml Intake Oral 240 ml 800 ml 240 ml 240 ml Output Urine Total 1650 ml # Voids 3 2 # Bowel Movements 0 0 1 Physical Exam Vital Signs Date Time Temp Pulse Resp B/P (MAP) Pulse Ox O2 Delivery O2 Flow Rate FiO2 03/27/17 20:10 100.3 82 17 140/71 (94) 93 03/27/17 09:04 21 03/26/17 17:00 Room Air 03/26/17 13:30 2 No JVD Lungs; CTA Heart RRR, no murmur. Ext: No C/C/E Neuro: Npn-focal Laboratory Laboratory Tests Test 03/29/17 07:30 White Blood Count 9.2 TH/MM3 Red Blood Count 3.99 MIL/MM3 Hemoglobin 12.2 GM/DL Hematocrit 35.2 % Mean Corpuscular Volume 88.3 FL Mean Corpuscular Hemoglobin 30.6 PG Mean Corpuscular Hemoglobin Concent 34.7 % Red Cell Distribution Width 14.5 % Platelet Count 168 TH/MM3 Mean Platelet Volume 7.7 FL Assessment and Plan Problem List: (1) Lightheaded ICD Codes: R42 - Dizziness and giddiness (2) Orthostatic hypotension ICD Codes: I95.1 - Orthostatic hypotension (3) Arteriosclerotic heart disease (ASHD) ICD Codes: I25.10 - Atherosclerotic heart disease of [place] coronary artery without angina pectoris (4) Ischemic cardiomyopathy ICD Codes: I25.5 - Ischemic cardiomyopathy (5) Diabetes mellitus ICD Codes: E11.9 - Type 2 diabetes mellitus without complications (6) S/P TKR (total knee replacement) ICD Codes: Z96.659 - Presence of unspecified artificial knee joint Assessment and Plan Patient to take his own Coreg CR 20 mg daily (not on formulary here). Hold fosinopril another 24 hours and resume tomorrow 5 mg daily (half prior dose). Resume antiplatelet Rx. Increase activity with assistance today as tolerates. Change Lasix and KCL to QD PRN edema. Plans are to go to rehab facility today. CV stable. I will have him f/u in my office in 2 weeks for BP check and med adjustments as needed. Thank you. 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 Avtar Larson MD Mar 29, 2017 08:01
--- NOTE | 2017-03-29 08:06 | PD.ORT.PN ---
Subjective Post Op Day #: 3 Subjective Remarks pain tolerable. BP better. denies cp and sob. Objective Vitals Vital Signs Date Time Temp Pulse Resp B/P (MAP) Pulse Ox O2 Delivery O2 Flow Rate FiO2 03/28/17 20:25 98.8 85 17 111/65 (80) 93 03/28/17 16:34 96.4 78 17 114/71 (85) 96 03/28/17 11:27 96.0 71 18 121/67 (85) 96 I/O 03/28/17 03/28/17 03/28/17 03/29/17 03/29/17 03/29/17 07:00 15:00 23:00 07:00 15:00 23:00 Intake Total 240 ml 800 ml 240 ml 240 ml Output Total 1650 ml Balance 240 ml 800 ml -1410 ml 240 ml Intake Oral 240 ml 800 ml 240 ml 240 ml Output Urine Total 1650 ml # Voids 3 2 # Bowel Movements 0 0 1 Result Diagram: 03/29/17 0730 03/28/17 0740 Imaging Last 24 hours Impressions Knee X-Ray 03/26/17 0913 Signed Impressions: Service Date/Time: Sunday, March 26, 2017 12:46 - CONCLUSION: Status post total knee arthroplasty. Ted Peguero MD Objective Remarks in bed, nad dressing c/d/i neg aden nvi Assessment & Plan Ortho Post Op Day #: 3 Problem List: Assessment and Plan s/p R TKA wbat daily dressing changes plavix d/c planning snf - cleared today PT hypotension - seen by cardiology rx in chart f/up dr. alcantara 2 weeks Tay Pandey Mar 29, 2017 08:06
[2017-03-29 08:23] LABS: BICARBONATE 33.4 MEQ/L (21.0-32.0)
[2017-03-29] MEDS: MULTIVITAMINS/MINERALS THERAPEUTIC TAB PO SCH (08:32)
[2017-03-29] MEDS: metFORMIN HCL 500 MG TAB PO SCH (08:32)
[2017-03-29] MEDS: buPROPion HCL 150 MG SUSTAINED RELEASE TAB PO SCH (08:32)
[2017-03-29] MEDS: GABAPENTIN 300 MG CAP PO SCH (08:32)
[2017-03-29] MEDS: FENOFIBRATE 145 MG TAB PO SCH (08:33)
[2017-03-29] MEDS: DOCUSATE SODIUM 100 MG CAP PO SCH (08:33)
[2017-03-29] MEDS: ISOSORBIDE MONONITRATE 60 MG TAB PO SCH (08:33)
[2017-03-29] MEDS: ASPIRIN EC 81 MG TABEC PO SCH (08:33)
[2017-03-29] MEDS: FINASTERIDE 5 MG TAB PO SCH (08:33)
[2017-03-29] MEDS: SODIUM CHLORIDE 0.9% FLUSH 5 ML FLUSH IVF SCH (08:34)
[2017-03-29] MEDS: INSULIN ASPART SUPPLEMENTAL SCALE SQ SCH ×2 (08:41→11:41)
[2017-03-29] MEDS ORDERED: CLOPIDOGREL 75 MG TAB PO SCH (09:00)
[2017-03-29] MEDS ORDERED: PATIENT OWN MEDICATION PO SCH ×2 (09:00)
[2017-03-29] MEDS ORDERED: CARVEDILOL 6.25 MG TAB PO SCH (09:00)
[2017-03-29] MEDS ORDERED: LOPERAMIDE HCL 2 MG CAP PO PRN (10:00)
[2017-03-29] MEDS: ENOXAPARIN SODIUM 40 MG/0.4 ML SYRINGE SQ SCH (10:07)
[2017-03-29 11:37] VITALS: BP 112/70; PULSE 78; RESP 16; TEMP 97.3; O2SAT 93
--- NOTE | 2017-03-29 12:07 | HHI.PR ---
Subjective Remarks in no distress. pain is controlled. BP stable. d/w the RN and no acute issues over night. Objective Vitals Vital Signs Date Time Temp Pulse Resp B/P (MAP) Pulse Ox O2 Delivery O2 Flow Rate FiO2 03/29/17 11:37 97.3 78 16 112/70 (84) 93 03/29/17 08:00 98.4 83 17 134/75 (94) 90 03/28/17 20:25 98.8 85 17 111/65 (80) 93 03/28/17 16:34 96.4 78 17 114/71 (85) 96 I/O 03/28/17 03/28/17 03/28/17 03/29/17 03/29/17 03/29/17 07:00 15:00 23:00 07:00 15:00 23:00 Intake Total 240 ml 800 ml 240 ml 240 ml Output Total 1650 ml Balance 240 ml 800 ml -1410 ml 240 ml Intake Oral 240 ml 800 ml 240 ml 240 ml Output Urine Total 1650 ml # Voids 3 2 # Bowel Movements 0 0 1 Result Diagram: 03/29/1772903/29/17729 Imaging Last Impressions Knee X-Ray 03/26/17912 Signed Impressions: Service Date/Time: Sunday, March 26, 2017 12:46 - CONCLUSION: Status post total knee arthroplasty. Ted Peguero MD Objective Remarks GENERAL: This is a well-nourished, well-developed patient, in no apparent distress. CARDIOVASCULAR: Regular rate and regular rhythm without murmurs, gallops, or rubs. RESPIRATORY: Clear to auscultation. Breath sounds equal bilaterally. No wheezes , rales, or rhonchi. GASTROINTESTINAL: Abdomen soft, non-tender, nondistended. Normal, active bowel sounds MUSCULOSKELETAL: right knee covered with clean dressing. NEURO: Alert & Oriented x4 to person, place, time, situation. Moves all ext x4 Medications and IVs Current Medications Dexamethasone Sodium Phosphate (Decadron Inj) 10 mg LASTING ROOM MACHINE OPERATOR PRN IV GIVE IN OR HOLDING Last administered on 03/26/17 07:35; Start 03/26/17 at 07:00; Stop at 06:59; Status DC Povidone Iodine (Betadine 7.5% Scrub) 1 applic ONCE TOPICAL Last administered on 03/26/17 07:57; Start 03/26/17 at 07:00; Stop 03/29/17 at 06:59; Status DC Chlorhexidine Gluconate (Hibiclens 4% Top Soln) 1 applic ONCE TOPICAL ; Start at 07:00; Stop 03/29/17 at 06:59; Status DC Cefazolin Sodium/ Dextrose 50 ml @ 100 mls/hr LASTING ROOM MACHINE OPERATOR IV Last administered on 03/26/17 08:38; Start 03/26/17 at 07:00; Stop 03/29/17 at 06:59; Status DC Vancomycin HCl 1000 mg/Sodium Chloride 250 ml @ 250 mls/hr LASTING ROOM MACHINE OPERATOR IV Last administered on 03/26/17 08:40; Start 03/26/17 at 07:00; Stop 03/29/17 at 06:59 ; Status DC Tranexamic Acid 1415 mg/Sodium Chloride 114.15 ml @ 200 mls/ hr ONCE IV Last administered on 03/26/17 10:50; Start 03/26/17 at 07:00; Stop 03/26/17 at 17:00 ; Status DC Ropivacaine 24.63 ml/Ketorolac Tromethamine 30 mg/Epinephrine HCl 0.5 mg/ Clonidine 80 mcg/ Sodium Chloride 100 ml @ 200 mls/hr ONCE P-ARTICULR Last administered on 03/26/17 11:55; Start 03/26/17 at 07:00; Stop 03/26/17 at 17:00 ; Status DC Tranexamic Acid 3000 mg/Sodium Chloride 130 ml @ 260 mls/hr ONCE P-ARTICULR Last administered on 03/26/17 12:00; Start 03/26/17 at 07:00; Stop 03/26/17 at 17:00; Status DC Lactated Ringer's 1,000 ml @ 30 mls/hr Q24H PRN IV SEE LABEL COMMENTS Last administered on 03/26/17 07:30; Start 03/26/17 at 07:00; Stop 03/29/17 at 06:59 ; Status DC Sodium Chloride 500 ml @ 30 mls/hr [id number] PRN IV SEE LABEL COMMENTS; Start at 07:00; Stop 03/29/17 at 06:59; Status DC Metoprolol Tartrate (Lopressor) 25 mg LASTING ROOM MACHINE OPERATOR PRN PO SEE LABEL COMMENTS; Start 03/26/17 at 07:00; Stop 03/29/17 at 06:59; Status DC Povidone Iodine (Betadine 5% Antisepsis Kit) 1 applic LASTING ROOM MACHINE OPERATOR PRN EACH NARE SEE LABEL COMMENTS Last administered on 03/26/17 06:50; Start 03/26/17 at 07:00 ; Stop 03/29/17 at 06:59; Status DC Chlorhexidine Gluconate (Chlorhexidine 2% Cloth) 3 pack LASTING ROOM MACHINE OPERATOR PRN TOPICAL SEE LABEL COMMENTS Last administered on 03/26/17 06:45; Start 03/26/17 at 07:00 ; Stop 03/29/17 at 06:59; Status DC Insulin Human Regular (NovoLIN R INJ) See Protocol Table ... LASTING ROOM MACHINE OPERATOR PRN SQ SEE PROTOCOL TABLE; Start 03/26/17 at 07:00; Stop 03/29/17 at 06:59; Status DC Bupropion HCl (Wellbutrin Sr) 150 mg Q12HR PO Last administered on 03/29/17 08 :32; Start 03/26/17 at 21:00 Fenofibrate (Tricor) 145 mg DAILY PO Last administered on 03/29/17 08:33; Start 03/27/17 at 09:00 Finasteride (Proscar) 5 mg DAILY PO Last administered on 03/29/17 08:33; Start 03/27/17 at 09:00 Lisinopril (Prinivil) 10 mg DAILY PO Last administered on 03/27/17 08:15; Start 03/27/17 at 09:00; Stop 03/27/17 at 15:35; Status DC Furosemide (Lasix) 20 mg DAILY PO Last administered on 03/28/17 08:27; Start 03/27/17 at 09:00; Stop 03/29/17 at 07:58; Status DC Gabapentin (Neurontin) 600 mg BID PO Last administered on 03/29/17 08:32; Start 03/26/17 at 21:00 Insulin Detemir (Levemir Inj) 38 units HS SQ Last administered on 03/28/17 21: 42; Start 03/26/17 at 21:00 Isosorbide Mononitrate (Imdur) 60 mg DAILY PO Last administered on 03/29/17 08 :33; Start 03/27/17 at 09:00 Metformin HCl (Glucophage) 1,000 mg HS PO Last administered on 03/28/17 21:41 ; Start 03/26/17 at 21:00 Metformin HCl (Glucophage) 500 mg BIDPC PO Last administered on 03/29/17 08:32 ; Start 03/26/17 at 18:00 Potassium Chloride (KCl) 20 meq DAILY PO Last administered on 03/28/17 08:27; Start 03/27/17 at 10:00; Stop 03/29/17 at 07:58; Status DC Tamsulosin HCl (Flomax) 0.8 mg DAILY@1600 PO Last administered on 03/28/17 16: 30; Start 03/26/17 at 16:00 Zolpidem Tartrate (Ambien) 10 mg HS PRN PO INSOMNIA Last administered on 21:33; Start 03/26/17 at 21:00 Carvedilol (Coreg) 6.25 mg BID PO Last administered on 03/27/17 08:14; Start 03/27/17 at 09:00; Stop 03/27/17 at 15:34; Status DC Pantoprazole Sodium (Protonix) 20 mg HS PO Last administered on 03/28/17 21:40 ; Start 03/26/17 at 21:00 Pravastatin Sodium (Pravachol) 80 mg HS PO Last administered on 03/28/17 21:40 ; Start 03/26/17 at 21:00 Sodium Chloride 1,000 ml @ 100 mls/hr Q10H IV Last administered on 03/26/17 12:35; Start 03/26/17 at 09:13 IV Flush (NS Flush) 2 ml UNSCH PRN IVF FLUSH AFTER USING IV ACCESS; Start 03/26 at 09:15 IV Flush (NS Flush) 2 ml BID IVF Last administered on 03/28/17 08:36; Start at 21:00 Cefazolin Sodium 1000 mg/Sodium Chloride 100 ml @ 200 mls/hr Q6H IV Last administered on 03/27/17 03:05; Start 03/26/17 at 15:00; Stop 03/27/17 at 03:29 ; Status DC Miscellaneous Information (Post-op Orders (for Pharmacy)) STAT ONCE XX ; Start 03/26/17 at 09:15; Stop 03/26/17 at 09:20; Status DC Enoxaparin Sodium (Lovenox Inj) 40 mg Q24H SQ Last administered on 03/29/17 10 :07; Start 03/27/17 at 11:00 Morphine Sulfate (Morphine Inj) 3 mg Q3H PRN IV PUSH Pain >7 when off GRADE RECORDER Last administered on 03/26/17 14:48; Start 03/26/17 at 09:15 Acetaminophen/ Hydrocodone Bitart (Harold 7.5-325 Mg) 1 tab Q4H PRN PO PAIN LESS THAN 5 ON SCALE Last administered on 03/27/17 13:52; Start 03/26/17 at 09: 15 Acetaminophen/ Hydrocodone Bitart (Harold 7.5-325 Mg) 2 tab Q4H PRN PO PAIN SCALE 5 TO 10 Last administered on 03/29/17 10:07; Start 03/26/17 at 09:15 Multivitamins/ Minerals Therapeutic (Theragran M Tab) 1 tab BID PO Last administered on 03/29/17 08:32; Start 03/27/17 at 21:00; Stop 05/26/17 at 20: 59 Ondansetron HCl (Zofran Inj) 4 mg Q6H PRN IVP NAUSEA OR VOMITING; Start at 09:15 Docusate Sodium (Colace) 100 mg BID PO Last administered on 03/28/17 21:40; Start 03/27/17 at 21:00 Bisacodyl (Dulcolax Supp) 10 mg DAILY PRN RECTAL CONSTIPATION Last administered on 03/28/17 21:43; Start 03/26/17 at 09:15 Diphenhydramine HCl (Benadryl Inj) 25 mg Q6H PRN IV ITCHING; Start 03/26/17 at 09:15 Gentamicin Sulfate (Gentamicin Inj) 240 mg STK-MED ONCE .ROUTE Last administered on 03/26/17 10:58; Start 03/26/17 at 09:53; Stop 03/26/17 at 09:54 ; Status DC Midazolam HCl (Versed Inj) 2 mg STK-MED ONCE .ROUTE ; Start 03/26/17 at 10:10; Stop 03/26/17 at 10:11; Status DC Famotidine (Pepcid Inj) 20 mg STK-MED ONCE .ROUTE ; Start 03/26/17 at 10:10; Stop 03/26/17 at 10:11; Status DC Miscellaneous Information ALL NURSING DEPARTME... UNSCH PRN .XX SEE LABEL COMMENTS; Start 03/26/17 at 12:20; Stop 03/27/17 at 12:19; Status DC Dextrose (D50w (Vial) Inj) 50 ml UNSCH PRN IV HYPOGLYCEMIA-SEE COMMENTS; Start 03/26/17 at 14:00 Glucagon (Glucagon Inj) 1 mg UNSCH PRN OTHER HYPOGLYCEMIA-SEE COMMENTS; Start 03/26/17 at 14:00 Insulin Aspart (NovoLOG SUPPLEMENTAL SCALE) 1 ACHS SLIDING SCALE SQ Last administered on 03/29/17 11:41; Start 03/26/17 at 17:00 Patient Own Medication Coreg CR 20 mg PO daily... DAILY PO ; Start 03/28/17 at 09:00; Stop 03/29/17 at 06:41; Status DC Aspirin (Ecotrin Ec) 81 mg DAILY PO Last administered on 03/29/17 08:33; Start 03/28/17 at 09:15 Clopidogrel Bisulfate (Plavix) 75 mg DAILY PO Last administered on 03/29/17 08 :32; Start 03/29/17 at 09:00 Magnesium Hydroxide (Milk Of Magntorrey Liq) 30 ml HS PO Last administered on 21:39; Start 03/28/17 at 21:00 Bisacodyl (Dulcolax Ec) 10 mg HS PO Last administered on 03/28/17 21:39; Start 03/28/17 at 21:00 Ondansetron HCl (Zofran Odt) 4 mg Q8H PRN PO NAUSEA Last administered on 12:31; Start 03/28/17 at 12:15 Patient Own Medication 20 ea DAILY PO ; Start 03/29/17 at 09:00; Stop 03/29/17 at 09:00; Status DC Patient Own Medication 1 ea DAILY PO ; Start 03/29/17 at 09:00; Status Cancel Carvedilol (Coreg) 6.25 mg BID PO Last administered on 03/29/17 08:33; Start 03/29/17 at 09:00 Furosemide (Lasix) 20 mg DAILY PRN PO edema; Start 03/29/17 at 08:00 Potassium Chloride (KCl) 20 meq DAILY PRN PO with lasix; Start 03/29/17 at 08: 00 Loperamide HCl (Imodium) 2 mg UNSCH PRN PO DIARRHEA Last administered on 10:07; Start 03/29/17 at 10:00 A/P Assessment and Plan A/P - s/o right TKA- management per ortho -CAD-s/p stent placement; resumed antiplatelets resumed coreg - hold lisinopril for now and resume fosinopril 5 mg daily from tomorrow. continue to monitor the BP. cardiology evaluation appreciated. f/u as outpatient. -dyslipidemia; resumed statin -diabetes mellitus; resumed levemir- accu-check with SSI -DVT prophylaxis with Lovenox- per ortho Discharge Planning dc planning per ortho. Yumi Anaya MD Mar 29, 2017 12:07
[2017-03-29] MEDS ORDERED: FOSI10TA PO (12:13)
[2017-03-29] MEDS ORDERED: POTA-163 PO (12:13)
[2017-03-29] MEDS ORDERED: FURO20TA PO (12:13)
--- NOTE | 2017-03-30 12:47 | MD ---
cc: ZI MUÑIZ M.D. ADMISSION DATE: 03/26/2017 DISCHARGE DATE: 03/29/2017 ADMITTING DIAGNOSIS Severe degenerative osteoarthritis right knee DISCHARGE DIAGNOSIS Severe degenerative osteoarthritis right knee HISTORY OF PRESENT ILLNESS Mr. Robledo is a 71-year-old male who presented to the [facility] for evaluation by Dr. Zi Muñiz regarding his severe and progressive right knee pain. The patient states the pain has been bothering him for greater than one year duration for which he has received treatment this ailment. He notes a severe aching sensation aggravated by weightbearing activities. He has no alleviating factors at this time. In the past, he tried medications, bracing, therapy, home exercise program, weight loss attempts and injections without relief of symptoms. He does have x-ray evidence of severe degenerative osteoarthritis of the right knee. While in the office, the patient was counseled as to his diagnosis and treatment options. The risks, benefits and indications all were discussed. The patient did elect to proceed with surgical intervention to include a right total knee arthroplasty surgery. On 03/26/2017, right total knee arthroplasty. Postop after surgery, the patient admitted to [facility] where he received appropriate medical management, pain control with DVT prophylaxis, as well as physical therapy. DISCHARGE Once being discharged from the hospital, the patient is cleared to go to a longterm facility. He is in stable condition. He may weight-bear as tolerated. He is to receive daily dressing changes and has been instructed on wound care management. The patient has been provided prescriptions for pain control as well as DVT prophylaxis medication. He has also been provided a follow-up appointment in approximately two weeks from his date of surgery. The patient and the patient's have asked appropriate questions which have been answered. The patient is cleared for discharge. Dictated by STEPHEN Phillips MD SAUL Parsons/SANTOSH /8:08 AM /12:43 PM
== END 2017-03-29 15:59 | DRG 470 ==
LOC: HSDC 06:28 → HSDI 06:29 → N06A 18:06
PROVIDERS: ADMIT Orthopaedic Surgery Sports Medicine; ATTEND Orthopaedic Surgery Sports Medicine
PROC: 3E0T3CZ (ICD-10-PCS; 2017-03-26)
PROC: 0SRC0J9 Replacement of Right Knee Joint with Synthetic Substitute, Cemented, Open Approach (ICD-10-PCS; principal; 2017-03-26 10:12)
DX: M17.11 Unilateral primary osteoarthritis, right knee (principal); E11.9 Type 2 diabetes mellitus without complications; I25.5 Ischemic cardiomyopathy; I11.9 Hypertensive heart disease without heart failure; I95.1 Orthostatic hypotension; K59.00 Constipation, unspecified; E78.4 Other hyperlipidemia; I25.119 Atherosclerotic heart disease of native coronary artery with unspecified angina pectoris; Z79.84 Long term (current) use of oral hypoglycemic drugs; Z87.891 Personal history of nicotine dependence; Z95.5 Presence of coronary angioplasty implant and graft; I25.2 Old myocardial infarction
CPT/HCPCS: 73560; 80048; 82948; 85027; 86850; 86900; 86901; 94150; C1776; C9290; J0690; J0735; J1100; J1580; J1650; J1815; J1885; J2250; J2270; J2795; J3370; J7030; J7050; J7120; L1830